=== PATIENT | male | born 1980 | race Caucasian/White ===

== ENCOUNTER 2016-11-01 20:52 | Emergency (ER) | payer OTHER, MEDICAID ==
--- NOTE | 2016-11-01 22:00 | EDM.PDOC ---
ED HPI GENERAL MEDICAL PROBLEM - General Chief Complaint: Lower Extremity Injury/Pain Stated Complaint: PAIN RIGHT LEG [id number] Time Seen by Provider: 11/01/16 21:45 Source of Information: Reports: Patient History Limitations: Reports: No Limitations - History of Present Illness INITIAL COMMENTS - FREE TEXT/NARRATIVE: slipped and right knee went out side ways [employer]. Right Knee Pain Score (Numeric/FACES): 7 - Related Data Allergies Allergy/AdvReac Type Severity Reaction Status Date / Time No Known Allergies Allergy Verified 11/01/16 21:27 Home Meds: Home Meds . [No Known Home Meds] 04/09/16 [History] Past Medical History - Past Health History Medical/Surgical History: Denies Medical/Surgical History Neurological History: Reports: Brain Injury Endocrine/Metabolic History: Reports: Obesity/BMI 30+ Social & Family History - Family History Endocrine/Metabolic: Reports: Diabetes, type II Other Endocrine/Metabolic Family History: dad and grandparents on mom's side. - Tobacco Use Smoking Status *Q: Unknown Ever Smoked Second Hand Smoke Exposure: No - Caffeine Use Caffeine Use: Reports: Soda - Alcohol Use Days Per Week of Alcohol Use: 0 - Recreational Drug Use Recreational Drug Use: No Review of Systems - Review of Systems Review Of Systems: ROS reveals no pertinent complaints other than HPI. ED EXAM, GENERAL - Physical Exam Exam: See Below Exam Limited By: No Limitations General Appearance: Alert, WD/WN, Mild Distress, Other (discomfort) Ears: Hearing Grossly Normal Throat/Mouth: Normal Voice, No Airway Compromise Head: Atraumatic Neck: Non-Tender, Full Range of Motion Respiratory/Chest: No Respiratory Distress Cardiovascular: Regular Rate, Rhythm GI/Abdominal: Soft, Non-Tender Extremities: Limited Range of Motion, Other (right knee swollen, tender R/P, NV wnl, gait limited to pain) Neurological: Alert, Oriented, Normal Cognition, No Motor/Sensory Deficits Psychiatric: Normal Affect, Normal Mood Skin Exam: Warm, Dry Lymphatic: No Adenopathy Course - Vital Signs Last Recorded V/S: Last Vital Signs Temp 37.1 C 11/01/16 21:37 Pulse 92 11/01/16 21:37 Resp 20 11/01/16 21:37 BP 154/90 H 11/01/16 21:37 Pulse Ox 97 11/01/16 21:37 - Orders/Labs/Meds Orders: Active Orders 24 hr Category Date Time Status Knee 3V Rt [CR] Urgent Exams 11/01/16 21:35 Ordered Meds: Medications Discontinued Medications Generic Name Dose Route Start Last Admin Trade Name Debbie PRN Reason Stop Dose Admin Hydrocodone Bitart/Acetaminophen 1 tab 11/01/16 23:07 11/01/16 23:37 [place] 325-10 Mg PO 11/01/16 23:08 1 tab ONETIME ONE Administration Ketorolac Tromethamine 30 mg 11/01/16 22:41 11/01/16 22:49 Toradol IM 11/01/16 22:42 30 mg ONETIME ONE Administration - Re-Assessments/Exams Free Text/Narrative Re-Assessment/Exam: 11/01/16 23:08 results discussed with pt. Departure - Departure Time of Disposition: 21:40 Disposition: Home, Self-Care 01 Condition: Good Clinical Impression: Sprain of knee - Discharge Information Instructions: Knee Sprain, [id number] Forms: ED Department Discharge Additional Instructions: 1) wear immobilizer and use crutches 2) elevate leg as much as possible next few days 3) see clinic Friday for MRI SCAN of knee rx given; vicodin 5/325mg bid prn x 12 - My Orders Last 24 Hours: My Active Orders 11/01/16 21:35 Knee 3V Rt [CR] Urgent - Assessment/Plan Last 24 Hours: My Active Orders 11/01/16 21:35 Knee 3V Rt [CR] Urgent
[2016-11-01] MEDS ORDERED: Ketorolac 30 MG/ML SDV IM ONE (22:41)
[2016-11-01] MEDS ORDERED: Acetaminophen/HYDROcodone 325-10 MG Tab PO ONE (23:07)
[2016-11-02 01:23] VITALS: BP 154/90
== END 2016-11-01 23:40 | disposition home or self-care (01) ==
LOC: DL.ED 20:52
DX: S83.91XA Sprain of unspecified site of right knee, initial encounter (principal); E66.9 Obesity, unspecified; Z87.820 Personal history of traumatic brain injury; Z68.43 Body mass index [BMI] 50.0-59.9, adult; W18.40XA Slipping, tripping and stumbling without falling, unspecified, initial encounter
CPT/HCPCS: 73562; 96372; 99283; A9270; J1885

== ENCOUNTER 2017-04-15 23:44 | Emergency (ER) | payer MEDICAID, OTHER ==
[2017-04-15] MEDS ORDERED: Amoxicillin/Clavulanate K 875-125 MG Tab PO ONE (23:45)
[2017-04-15] MEDS ORDERED: Albuterol 6.7 GM Inhaler INH ONE (23:45)
[2017-04-15 23:53] VITALS: BP 141/81
[2017-04-16] MEDS ORDERED: Albuterol 6.7 GM Inhaler INH ONE (00:24)
[2017-04-16] MEDS ORDERED: Amoxicillin/Clavulanate K 875-125 MG Tab ONE (00:24)
--- NOTE | 2017-04-16 00:27 | EDM.PDOC ---
ED HPI GENERAL MEDICAL PROBLEM - General Chief Complaint: Respiratory Problem Stated Complaint: BAD COUGH [id number] Time Seen by Provider: 04/15/17 23:50 Source of Information: Reports: Patient History Limitations: Reports: No Limitations - History of Present Illness INITIAL COMMENTS - FREE TEXT/NARRATIVE: cough, congestion zx 2 days, today harder time breathing Throat Pain Score (Numeric/FACES): 4 - Related Data Allergies Allergy/AdvReac Type Severity Reaction Status Date / Time No Known Allergies Allergy Verified 04/15/17 23:53 Home Meds: Home Meds . [No Known Home Meds] 04/09/16 [History] Past Medical History - Past Health History Medical/Surgical History: Denies Medical/Surgical History Neurological History: Reports: Brain Injury Endocrine/Metabolic History: Reports: Obesity/BMI 30+ Social & Family History - Family History Endocrine/Metabolic: Reports: Diabetes, type II Other Endocrine/Metabolic Family History: dad and grandparents on mom's side. - Tobacco Use Smoking Status *Q: Never Smoker Second Hand Smoke Exposure: No - Caffeine Use Caffeine Use: Reports: Soda - Alcohol Use Days Per Week of Alcohol Use: 0 - Recreational Drug Use Recreational Drug Use: No ED ROS GENERAL - Review of Systems Review Of Systems: See Below Constitutional: Reports: Fever HEENT: Reports: Rhinitis, Sinus Problem. Denies: Throat Pain Respiratory: Reports: Shortness of Breath, Cough Cardiovascular: Reports: No Symptoms GI/Abdominal: Reports: No Symptoms Musculoskeletal: Reports: No Symptoms Skin: Reports: No Symptoms Neurological: Reports: No Symptoms ED EXAM, GENERAL - Physical Exam Exam: See Below Exam Limited By: No Limitations General Appearance: Alert, Mild Distress, Obese Eye Exam: Bilateral Eye: EOMI, PERRL Ears: Normal External Exam, Normal TMs Nose: Normal Inspection Throat/Mouth: Normal Voice (hoarse), Inflammation Head: Atraumatic, Normocephalic Neck: Lymphadenopathy (L), Lymphadenopathy (R) Respiratory/Chest: No Respiratory Distress, Lungs Clear, Decreased Breath Sounds , Other (ocassional non productive cough) Cardiovascular: Normal Peripheral Pulses, Regular Rate, Rhythm Back Exam: Normal Inspection, Full Range of Motion Extremities: Normal Inspection Neurological: Alert, Oriented Course - Vital Signs Last Recorded V/S: Last Vital Signs Temp 98.4 F 04/15/17 23:49 Pulse 103 H 04/15/17 23:49 Resp 18 04/15/17 23:49 BP 141/81 H 04/15/17 23:49 Pulse Ox 94 L 04/15/17 23:49 - Orders/Labs/Meds Meds: Medications Discontinued Medications Generic Name Dose Route Start Last Admin Trade Name Debbie PRN Reason Stop Dose Admin Albuterol Confirm 04/16/17 00:24 04/16/17 00:34 Proventil Hfa Administered 04/16/17 00:25 Not Given Dose 6.7 gm INH .STK-MED ONE Amoxicillin/Clavulanate Potassium Confirm 04/16/17 00:24 04/16/17 00:34 Augmentin 875 Mg/125 Mg Administered 04/16/17 00:25 Not Given Dose 2 tab .ROUTE .STK-MED ONE Departure - Departure Time of Disposition: 00:24 Disposition: Home, Self-Care 01 Condition: Good Clinical Impression: URI (upper respiratory infection) Qualifiers: URI type: unspecified URI Qualified Code(s): J06.9 - Acute upper respiratory infection, unspecified - Discharge Information Instructions: Acute Bronchitis, [id number], Upper Respiratory Infection, Adult, [id number] Referrals: Nuvia Montanez MD [Primary Care Provider] - Forms: ED Department Discharge Additional Instructions: tylenol or ibuprofen for discomfort/fever increase fluid intake muccinex, humidification albuterol inhaler 2 puffs every 4 hours as needed for cough/ wheezing augmentin 875 one twice daily for one week clinic follow up as needed
== END 2017-04-16 00:31 | disposition home or self-care (01) ==
LOC: DL.ED 23:44
DX: J06.9 Acute upper respiratory infection, unspecified (principal); E66.9 Obesity, unspecified
CPT/HCPCS: 99284; A9270

== ENCOUNTER 2017-08-24 23:14 | Observation (INO) | payer MEDICAID ==
[2017-08-24] MEDS ORDERED: Adenosine 6 MG/2 ML SDV IVPUSH ONE (23:24)
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
[2017-08-24] MEDS ORDERED: Ondansetron 4 MG/2 ML SDV IV ONE (23:33)
[2017-08-24] MEDS ORDERED: Morphine 2 MG/ML Syringe IVPUSH ONE (23:33)
[2017-08-24 23:51] LABS: CHLORIDE,CL 105 mmol/L (101-111); SODIUM,NA 138 mmol/L (135-145)
[2017-08-25] MEDS ORDERED: Ibuprofen 400 MG Tab PO PRN (01:03)
[2017-08-25] MEDS ORDERED: Sodium Chloride 0.9% 10 ML Syringe FLUSH PRN (01:03)
[2017-08-25] MEDS ORDERED: Zolpidem 5 MG Tab PO PRN (01:03)
[2017-08-25] MEDS ORDERED: Acetaminophen 325 MG Tab PO PRN (01:03)
[2017-08-25] MEDS ORDERED: oxyCODONE 5 MG Tab PO PRN (01:03)
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
[2017-08-25] MEDS ORDERED: Heparin Sodium 5,000 Units/ML Vial SUBCUT SCH (06:00)
[2017-08-25 06:59] LABS: CHLORIDE,CL 107 mmol/L (101-111); SODIUM,NA 139 mmol/L (135-145)
[2017-08-25 08:08] VITALS: BP 103/58
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
--- NOTE | 2017-08-26 07:56 | EKG ---
08/25/2017- LATOYA AKHTAR - FINDINGS: EKG per my reading, shows sinus tachycardia at the rate of 114. MODL /[id number]
== END 2017-08-25 10:43 | disposition home or self-care (01) ==
LOC: DL.ED 23:14 → DL.MS 08-25 00:20 → UNDOADMOB 08-25 00:20 → DL.MS 08-25 01:03
PROVIDERS: ADMIT Internal Medicine; ATTEND Internal Medicine
DX: R07.89 Other chest pain (principal); I47.1 Supraventricular tachycardia; R73.9 Hyperglycemia, unspecified; R74.8 Abnormal levels of other serum enzymes; E66.01 Morbid (severe) obesity due to excess calories; Z68.30 Body mass index [BMI] 30.0-30.9, adult
CPT/HCPCS: 36415; 71046; 80048; 80053; 84443; 84484; 85025; 93005; 93010; 96372; 96374; 96375; 99285; G0378; J1644; J2270; J2405; 99284

== ENCOUNTER 2017-09-02 20:02 | Observation (INO) | payer OTHER ==
[2017-09-02] MEDS ORDERED: Clindamycin Phosphate 900 MG in Sodium Chloride 0.9% 100 ML IV ONE (20:22)
[2017-09-02] MEDS ORDERED: Sodium Chloride 0.9% 1,000 ML IV SCH (20:30)
[2017-09-02 20:54] LABS: CHLORIDE,CL 106 mmol/L (101-111); SODIUM,NA 139 mmol/L (135-145)
--- NOTE | 2017-09-02 21:40 | EDM.PDOC ---
ED HPI GENERAL MEDICAL PROBLEM - General Chief Complaint: Lower Extremity Injury/Pain Stated Complaint: [id number] LEG VERY SWOLLEN 3X Time Seen by Provider: 09/02/17 21:37 Source of Information: Reports: Patient History Limitations: Reports: No Limitations - History of Present Illness INITIAL COMMENTS - FREE TEXT/NARRATIVE: 3 days h/o progressively worsening right leg swelling with prior h/o cellulitis , was feverish initially. today more swollen and painful and redder. Right Leg Pain Score (Numeric/FACES): 6 - Related Data Allergies Allergy/AdvReac Type Severity Reaction Status Date / Time No Known Allergies Allergy Verified 09/02/17 20:10 Home Meds: Home Meds . [No Known Home Meds] 04/09/16 [History] Past Medical History - Past Health History Medical/Surgical History: Denies Medical/Surgical History Cardiovascular History: Reports: Other (See Below) Other Cardiovascular History: one episode of rapid heart rate Musculoskeletal History: Reports: Other (See Below) Other Musculoskeletal History: bone spurs bilaterally to ankles Neurological History: Reports: Brain Injury, Headaches, Chronic, Migraines Endocrine/Metabolic History: Reports: Obesity/BMI 30+ Dermatologic History: Reports: Cellulitis - Infectious Disease History Infectious Disease History: Reports: Chicken Pox Social & Family History - Family History Family Medical History: Noncontributory Endocrine/Metabolic: Reports: Diabetes, type II Other Endocrine/Metabolic Family History: dad and grandparents on mom's side. - Tobacco Use Smoking Status *Q: Never Smoker - Caffeine Use Caffeine Use: Reports: Soda Other Caffeine Use: 3 20 oz bottles - Recreational Drug Use Recreational Drug Use: No Review of Systems - Review of Systems Review Of Systems: ROS reveals no pertinent complaints other than HPI. ED EXAM, GENERAL - Physical Exam Exam: See Below Exam Limited By: No Limitations General Appearance: Alert, WD/WN, Mild Distress, Other (discomfort) Ears: Hearing Grossly Normal Throat/Mouth: Normal Voice, No Airway Compromise Head: Atraumatic Neck: Non-Tender, Full Range of Motion Respiratory/Chest: No Respiratory Distress Cardiovascular: Regular Rate, Rhythm GI/Abdominal: Soft, Non-Tender Extremities: Other (right lower leg swollen mildly erythematous, tneder palpation, NV ) Neurological: Alert (gait limited to pain), Oriented, Normal Cognition, No Motor /Sensory Deficits Psychiatric: Flat Affect Skin Exam: Warm, Dry, Normal Color Lymphatic: No Adenopathy Course - Vital Signs Last Recorded V/S: Last Vital Signs Temp 37.7 C 09/02/17 20:12 Pulse 119 H 09/02/17 20:12 Resp 18 09/02/17 20:12 BP 151/80 H 09/02/17 20:12 Pulse Ox 95 09/02/17 20:12 - Orders/Labs/Meds Orders: Active Orders 24 hr Category Date Time Status CULTURE BLOOD [BC] Stat Lab 09/02/17 20:30 Received Sodium Chloride 0.9% [Normal Saline] 1,000 ml Med 09/02/17 20:30 Active IV ASDIRECTED Medication Orders Sodium Chloride (Normal Saline) 1,000 mls @ 150 mls/hr IV ASDIRECTED RETA Last Admin: 09/02/17 21:15 Dose: 150 mls/hr Labs: Laboratory Tests 09/02/17 09/02/17 09/02/17 Range/Units 20:30 20:30 20:30 WBC 9.9 (5.0-10.0) 10^3/uL RBC 4.33 L (4.6-6.2) 10^6/uL Hgb 12.9 L (14.0-18.0) g/dL Hct 39.5 L (40.0-54.0) % MCV 91.2 (80-100) fL MCH 29.8 (27.0-34.0) pg MCHC 32.7 L (33.0-35.0) g/dL Plt Count 308 (150-450) 10^3/uL Neut % (Auto) 67.8 (42.2-75.2) % Lymph % (Auto) 21.5 (20.5-50.1) % Ray % (Auto) 8.3 H (2-8) % Eos % (Auto) 2.0 (1.0-3.0) % Baso % (Auto) 0.4 (0.0-1.0) % Sodium 139 (135-145) mmol/L Potassium 3.5 L (3.6-5.0) mmol/L Chloride 106 (101-111) mmol/L Carbon Dioxide 28.0 (21.0-31.0) mmol/L Anion Gap 8.5 BUN 14 (7-18) mg/dL Creatinine 0.9 (0.6-1.3) mg/dL Est Cr Clr Drug Dosing 133.19 mL/min Estimated GFR (MDRD) > 60 BUN/Creatinine Ratio 15.55 Glucose 149 H (74-105) mg/dL Lactic Acid 1.6 (0.5-2.2) mmol/L Calcium 8.6 (8.4-10.2) mg/dl Total Bilirubin 0.5 (0.2-1.0) mg/dL AST 36 (10-42) IU/L ALT 38 (10-60) IU/L Alkaline Phosphatase 80 (42-121) IU/L Total Protein 7.8 (6.7-8.2) g/dl Albumin 3.5 (3.2-5.5) g/dl Globulin 4.3 Albumin/Globulin Ratio 0.81 Meds: Medications Generic Name Dose Route Start Last Admin Trade Name Freq PRN Reason Stop Dose Admin Sodium Chloride 1,000 mls @ 150 mls/hr 09/02/17 20:30 09/02/17 21:15 Normal Saline IV 150 mls/hr ASDIRECTED RETA Administration Discontinued Medications Generic Name Dose Route Start Last Admin Trade Name Freq PRN Reason Stop Dose Admin Clindamycin Phosphate 900 mg/ 106 mls @ 200 mls/hr 09/02/17 20:22 09/02/17 21 :15 Sodium Chloride IV 09/02/17 20:53 200 mls/hr ONETIME ONE Administration - Re-Assessments/Exams Free Text/Narrative Re-Assessment/Exam: 09/02/17 21:[address] Padgett who kindly admitted pt to observation Departure - Departure Time of Disposition: 21:45 Disposition: Refer to Observation Condition: Good Clinical Impression: Cellulitis of leg Qualifiers: Laterality: right Qualified Code(s): L03.115 - Cellulitis of right lower limb - Discharge Information Referrals: Nuvia Montanez MD [Primary Care Provider] - Forms: ED Department Discharge - My Orders Last 24 Hours: My Active Orders 09/02/17 20:30 CULTURE BLOOD [BC] Stat Sodium Chloride 0.9% [Normal Saline] 1,000 ml IV ASDIRECTED - Assessment/Plan Last 24 Hours: My Active Orders 09/02/17 20:30 CULTURE BLOOD [BC] Stat Sodium Chloride 0.9% [Normal Saline] 1,000 ml IV ASDIRECTED
[2017-09-02] MEDS ORDERED: Acetaminophen 325 MG Tab PO PRN (23:44)
--- NOTE | 2017-09-02 23:52 | PCM.HP ---
H&P History of Present Illness - General Date of Service: 09/02/17 Admit Problem/Dx: Admission Diagnosis/Problem Admission Diagnosis/Problem Cellulitis Source of Information: Patient History Limitations: Reports: No Limitations - History of Present Illness Initial Comments - Free Text/Narative: 37-year-old male with past medical history of obesity presents with right lower extremity redness and swelling Symptoms started about 2 days ago, he noticed lower extremity redness and swelling of the right leg. There is no history of insect bites, there is no history of pus or drainage. He had a low-grade fever. He had a similar cellulitis about 3 years ago. SH: Nonsmoker, doesn't drink alcohol. PMH: Doesn't take any daily medication Onset of Symptoms: Reports: Gradual Right Leg Pain Score (Numeric/FACES): 6 - Related Data Allergies/Adverse Reactions: Allergies Allergy/AdvReac Type Severity Reaction Status Date / Time No Known Allergies Allergy Verified 09/02/17 22:33 Home Medications: Home Meds . [No Known Home Meds] 04/09/16 [History] Past Medical History - Past Health History Medical/Surgical History: Denies Medical/Surgical History HEENT History: Reports: Other (See Below) Other HEENT History: migraines Cardiovascular History: Reports: Other (See Below) Other Cardiovascular History: one episode of rapid heart rate Musculoskeletal History: Reports: Other (See Below) Other Musculoskeletal History: bone spurs bilaterally to ankles Neurological History: Reports: Brain Injury, Headaches, Chronic, Migraines Endocrine/Metabolic History: Reports: Obesity/BMI 30+ Dermatologic History: Reports: Cellulitis - Infectious Disease History Infectious Disease History: Reports: Chicken Pox - Past Surgical History HEENT Surgical History: Reports: None Social & Family History - Family History Family Medical History: Noncontributory Endocrine/Metabolic: Reports: Diabetes, type II Other Endocrine/Metabolic Family History: dad and grandparents on mom's side. - Tobacco Use Smoking Status *Q: Never Smoker Second Hand Smoke Exposure: No - Caffeine Use Caffeine Use: Reports: None Other Caffeine Use: 3 20 oz bottles - Recreational Drug Use Recreational Drug Use: No H&P Review of Systems - Review of Systems: Review Of Systems: See Below General: Reports: Fever HEENT: Reports: No Symptoms Pulmonary: Reports: No Symptoms Cardiovascular: Reports: No Symptoms Gastrointestinal: Reports: No Symptoms Genitourinary: Reports: No Symptoms Musculoskeletal: Reports: Other (Leg redness and swelling) Skin: Reports: Change in Color Psychiatric: Reports: No Symptoms Neurological: Reports: No Symptoms Exam - Exam Exam: See Below - Vital Signs Vital Signs: Last Vital Signs Temp 37.9 C 09/02/17 21:54 Pulse 107 H 09/02/17 21:54 Resp 20 09/02/17 21:54 BP 121/70 09/02/17 21:54 Pulse Ox 95 09/02/17 21:54 Weight: 2.778 kg - Exam General: Alert, Oriented HEENT: Conjunctiva Clear Neck: Supple Lungs: Clear to Auscultation Cardiovascular: Regular Rate, Regular Rhythm GI/Abdominal Exam: Normal Bowel Sounds Extremities: Non-Tender, Increased Warmth, Redness, Other - Patient Data Lab Results Last 24 hrs: Laboratory Results - last 24 hr 09/02/17 09/02/17 09/02/17 Range/Units 20:30 20:30 20:30 WBC 9.9 (5.0-10.0) 10^3/uL RBC 4.33 L (4.6-6.2) 10^6/uL Hgb 12.9 L (14.0-18.0) g/dL Hct 39.5 L (40.0-54.0) % MCV 91.2 (80-100) fL MCH 29.8 (27.0-34.0) pg MCHC 32.7 L (33.0-35.0) g/dL Plt Count 308 (150-450) 10^3/uL Neut % (Auto) 67.8 (42.2-75.2) % Lymph % (Auto) 21.5 (20.5-50.1) % Lares % (Auto) 8.3 H (2-8) % Eos % (Auto) 2.0 (1.0-3.0) % Baso % (Auto) 0.4 (0.0-1.0) % Sodium 139 (135-145) mmol/L Potassium 3.5 L (3.6-5.0) mmol/L Chloride 106 (101-111) mmol/L Carbon Dioxide 28.0 (21.0-31.0) mmol/L Anion Gap 8.5 BUN 14 (7-18) mg/dL Creatinine 0.9 (0.6-1.3) mg/dL Est Cr Clr Drug Dosing 133.19 mL/min Estimated GFR (MDRD) > 60 BUN/Creatinine Ratio 15.55 Glucose 149 H (74-105) mg/dL Lactic Acid 1.6 (0.5-2.2) mmol/L Calcium 8.6 (8.4-10.2) mg/dl Total Bilirubin 0.5 (0.2-1.0) mg/dL AST 36 (10-42) IU/L ALT 38 (10-60) IU/L Alkaline Phosphatase 80 (42-121) IU/L Total Protein 7.8 (6.7-8.2) g/dl Albumin 3.5 (3.2-5.5) g/dl Globulin 4.3 Albumin/Globulin Ratio 0.81 Result Diagrams: 09/02/17 20:30 09/02/17 20:30 Problem List Initiated/Reviewed/Updated: Yes Orders Last 24hrs: Active Orders 24 hr Category Date Time Status Patient Status [ADT] Routine ADT 09/02/17 23:44 Ordered Ambulate [RC] ASDIRECTED Care 09/02/17 23:44 Ordered Oxygen Therapy [RC] PRN Care 09/02/17 23:44 Ordered Peripheral IV Care [RC] . DIRECTED Care 09/02/17 23:45 Ordered Up ad Cecille [RC] ASDIRECTED Care 09/02/17 23:44 Ordered VTE/DVT Education [RC] PER UNIT ROUTINE Care 09/02/17 23:44 Ordered Vital Signs [RC] Q4H Care 09/02/17 23:44 Ordered Regular Diet [DIET] Diet 09/03/17 Breakfast Ordered CULTURE BLOOD [BC] Stat Lab 09/02/17 20:30 Received Acetaminophen [Tylenol] Med 09/02/17 23:44 Ordered 650 mg PO Q4H PRN Heparin Sodium Med 09/03/17 06:00 Ordered 5,000 units SUBCUT Q8HR Sodium Chloride 0.9% [Normal Saline] 1,000 ml Med 09/02/17 20:30 Active IV ASDIRECTED Sodium Chloride 0.9% [Saline Flush] Med 09/02/17 23:44 Ordered 10 ml FLUSH ASDIRECTED PRN ceFAZolin [Ancef] 2 gm Med 09/03/17 06:00 Ordered Premix Bag 1 bag IV Q8HR Peripheral IV Insertion Adult [OM.PC] Routine Oth 09/02/17 23:44 Ordered Saline Lock Insert [OM.PC] Routine Oth 09/02/17 23:44 Ordered Resuscitation Status Routine Resus Stat 09/02/17 23:44 Ordered Medication Orders Sodium Chloride (Normal Saline) 1,000 mls @ 150 mls/hr IV ASDIRECTED RETA Last Admin: 09/02/17 21:15 Dose: 150 mls/hr Assessment/Plan Comment:: 37-year-old who presents with right lower extremity cellulitis #Right lower extremity cellulitis IV Ancef When necessary Tylenol for fever #Hyperkalemia Mild, replenish orally #DVT prophylaxis Subcutaneous heparin.
[2017-09-03] MEDS: ceFAZolin 2 GM in Premix Bag 1 BAG IV SCH ×3 (05:42→21:50)
[2017-09-03] MEDS: Heparin Sodium 5,000 Units/ML Vial SUBCUT SCH ×3 (05:44→21:55)
--- NOTE | 2017-09-03 10:39 | PCM.PN ---
- General Info Date of Service: 09/03/17 Admission Dx/Problem (Free Text): Admission Diagnosis/Problem Admission Diagnosis/Problem Cellulitis Subjective Update: 37-year-old male with past medical history of obesity presents with right lower extremity redness and swelling I saw and examined the patient today. Swelling and redness have reduced overnight with IV antibiotics. He has no new complaints - Review of Systems General: Reports: No Symptoms HEENT: Reports: No Symptoms Pulmonary: Reports: No Symptoms Cardiovascular: Reports: No Symptoms Gastrointestinal: Reports: No Symptoms, Flatus Genitourinary: Reports: No Symptoms Musculoskeletal: Reports: No Symptoms - Patient Data Vitals - Most Recent: Last Vital Signs Temp 36.8 C 09/03/17 10:18 Pulse 84 09/03/17 10:18 Resp 16 09/03/17 10:18 BP 142/76 H 09/03/17 10:18 Pulse Ox 96 09/03/17 10:18 Weight - Most Recent: 207.944 kg I&O - Last 24 Hours: Intake & Output 09/02/17 09/03/17 09/03/17 22:59 06:59 14:59 Intake Total 750 Output Total 140 Balance 610 Lab Results Last 24 Hours: Laboratory Results - last 24 hr 09/02/17 09/02/17 09/02/17 Range/Units 20:30 20:30 20:30 WBC 9.9 (5.0-10.0) 10^3/uL RBC 4.33 L (4.6-6.2) 10^6/uL Hgb 12.9 L (14.0-18.0) g/dL Hct 39.5 L (40.0-54.0) % MCV 91.2 (80-100) fL MCH 29.8 (27.0-34.0) pg MCHC 32.7 L (33.0-35.0) g/dL Plt Count 308 (150-450) 10^3/uL Neut % (Auto) 67.8 (42.2-75.2) % Lymph % (Auto) 21.5 (20.5-50.1) % Rogers % (Auto) 8.3 H (2-8) % Eos % (Auto) 2.0 (1.0-3.0) % Baso % (Auto) 0.4 (0.0-1.0) % Sodium 139 (135-145) mmol/L Potassium 3.5 L (3.6-5.0) mmol/L Chloride 106 (101-111) mmol/L Carbon Dioxide 28.0 (21.0-31.0) mmol/L Anion Gap 8.5 BUN 14 (7-18) mg/dL Creatinine 0.9 (0.6-1.3) mg/dL Est Cr Clr Drug Dosing 133.19 mL/min Estimated GFR (MDRD) > 60 BUN/Creatinine Ratio 15.55 Glucose 149 H (74-105) mg/dL Lactic Acid 1.6 (0.5-2.2) mmol/L Calcium 8.6 (8.4-10.2) mg/dl Total Bilirubin 0.5 (0.2-1.0) mg/dL AST 36 (10-42) IU/L ALT 38 (10-60) IU/L Alkaline Phosphatase 80 (42-121) IU/L Total Protein 7.8 (6.7-8.2) g/dl Albumin 3.5 (3.2-5.5) g/dl Globulin 4.3 Albumin/Globulin Ratio 0.81 Med Orders - Current: Current Medications Acetaminophen (Tylenol) 650 mg PO Q4H PRN PRN Reason: Pain (Mild 1-3)/fever Heparin Sodium (Porcine) (Heparin Sodium) 5,000 units SUBCUT Q8HR [facility] Last Admin: 09/03/17 05:44 Dose: 5,000 units Sodium Chloride (Normal Saline) 1,000 mls @ 150 mls/hr IV ASDIRECTED [facility] Last Admin: 09/02/17 21:15 Dose: 150 mls/hr Cefazolin Sodium/Dextrose 2 gm (/ Premix) 50 mls @ 100 mls/hr IV Q8HR [facility] Last Admin: 09/03/17 05:42 Dose: 100 mls/hr Sodium Chloride (Saline Flush) 10 ml FLUSH ASDIRECTED PRN PRN Reason: Keep Vein Open Discontinued Medications Clindamycin Phosphate 900 mg/ (Sodium Chloride) 106 mls @ 200 mls/hr IV ONETIME ONE Stop: 09/02/17 20:53 Last Admin: 09/02/17 21:15 Dose: 200 mls/hr - Exam General: Alert HEENT: Pupils Equal Neck: Supple Lungs: Clear to Auscultation Cardiovascular: Regular Rate GI/Abdominal Exam: Normal Bowel Sounds Extremities: Redness - Problem List Review Problem List Initiated/Reviewed/Updated: Yes - My Orders Last 24 Hours: My Active Orders 09/02/17 23:44 Patient Status [ADT] Routine Ambulate [RC] ASDIRECTED Oxygen Therapy [RC] PRN Up ad Cecille [RC] ASDIRECTED VTE/DVT Education [RC] PER UNIT ROUTINE Vital Signs [RC] Q4H Acetaminophen [Tylenol] 650 mg PO Q4H PRN Sodium Chloride 0.9% [Saline Flush] 10 ml FLUSH ASDIRECTED PRN Peripheral IV Insertion Adult [OM.PC] Routine Saline Lock Insert [OM.PC] Routine Resuscitation Status Routine 09/02/17 23:45 Peripheral IV Care [RC] . DIRECTED 09/03/17 06:00 Heparin Sodium 5,000 units SUBCUT Q8HR ceFAZolin [Ancef] 2 gm Premix Bag 1 bag IV Q8HR 09/03/17 Breakfast Regular Diet [DIET] - Plan Plan:: 37-year-old who presents with right lower extremity cellulitis #Right lower extremity cellulitis IV Ancef When necessary Tylenol for fever #DVT prophylaxis Subcutaneous heparin.
[2017-09-03] MEDS: Sodium Chloride 0.9% 10 ML Syringe FLUSH PRN ×3 (14:06→22:25)
[2017-09-04] MEDS: Sodium Chloride 0.9% 10 ML Syringe FLUSH PRN ×2 (05:22→06:32)
[2017-09-04] MEDS: Heparin Sodium 5,000 Units/ML Vial SUBCUT SCH (05:32)
[2017-09-04 07:56] VITALS: BP 106/55
--- NOTE | 2017-09-04 09:54 | PCM.DCSUM1 ---
Discharge Summary - Hospital Course Free Text/Narrative:: 37-year-old male with past medical history of obesity presents with right lower extremity redness and swelling. He was managed with IV Ancef, and received 2 days of IV antibiotics. He was discharged on oral Keflex to complete 10 more days. He will follow-up with his primary care provider. - Discharge Data Discharge Date: 09/04/17 Discharge Disposition: Home, Self-Care 01 Condition: Good - Patient Instructions Diet: Regular Diet as Tolerated Activity: As Tolerated Showering/Bathing: May Shower - Discharge Plan Prescriptions/Med Rec: Cephalexin [Keflex] 500 mg PO QID 10 Days #40 capsule Home Medications: Home Meds Cephalexin [Keflex] 500 mg PO QID 10 Days #40 capsule 09/04/17 [Rx] Patient Handouts: Cellulitis, Adult, Cellulitis, Adult, [id number] Forms: ED Department Discharge Referrals: Nuvia Montanez MD [Primary Care Provider] - - General Info Admission Dx/Problem (Free Text: Admission Diagnosis/Problem Admission Diagnosis/Problem Cellulitis Subjective Update: 37-year-old male with past medical history of obesity presents with right lower extremity redness and swelling I saw and examined the patient today. Swelling and redness have reduced overnight with IV antibiotics. He has no new complaints - Review of Systems General: Reports: No Symptoms HEENT: Reports: No Symptoms Pulmonary: Reports: No Symptoms Cardiovascular: Reports: No Symptoms Gastrointestinal: Reports: No Symptoms Genitourinary: Reports: No Symptoms Musculoskeletal: Reports: Other (Right lower extremity redness, swelling) - Patient Data Vitals - Most Recent: Last Vital Signs Temp 37.1 C 09/04/17 07:55 Pulse 74 09/04/17 07:55 Resp 20 09/04/17 07:55 BP 106/55 L 09/04/17 07:55 Pulse Ox 94 L 09/04/17 07:55 Weight - Most Recent: 207.944 kg I&O - Last 24 hours: Intake & Output 09/03/17 09/04/17 09/04/17 22:59 06:59 14:59 Intake Total 292 795 Output Total 4 Balance 292 791 CYNDIE Results - Last 24 hrs: Microbiology 09/02/17 20:30 Aerobic Blood Culture - Preliminary Blood NO GROWTH AFTER 1 DAY Anaerobic Blood Culture - Preliminary NO GROWTH AFTER 1 DAY Med Orders - Current: Current Medications Acetaminophen (Tylenol) 650 mg PO Q4H PRN PRN Reason: Pain (Mild 1-3)/fever Heparin Sodium (Porcine) (Heparin Sodium) 5,000 units SUBCUT Q8HR [facility] Last Admin: 09/04/17 05:32 Dose: 5,000 units Sodium Chloride (Normal Saline) 1,000 mls @ 150 mls/hr IV ASDIRECTED [facility] Last Admin: 09/02/17 21:15 Dose: 150 mls/hr Cefazolin Sodium/Dextrose (Ancef) 100 mls @ 100 mls/hr IV Q8H [facility] Last Admin: 09/04/17 05:24 Dose: 100 mls/hr Sodium Chloride (Saline Flush) 10 ml FLUSH ASDIRECTED PRN PRN Reason: Keep Vein Open Last Admin: 09/04/17 06:32 Dose: 10 ml Discontinued Medications Clindamycin Phosphate 900 mg/ (Sodium Chloride) 106 mls @ 200 mls/hr IV ONETIME ONE Stop: 09/02/17 20:53 Last Admin: 09/02/17 21:15 Dose: 200 mls/hr Cefazolin Sodium/Dextrose 2 gm (/ Premix) 50 mls @ 100 mls/hr IV Q8HR [facility] Last Infusion: 09/03/17 22:27 Dose: Infused - Exam General: Reports: Alert, Oriented HEENT: Reports: Pupils Equal Neck: Reports: Supple Lungs: Reports: Clear to Auscultation Cardiovascular: Reports: Regular Rate, Regular Rhythm GI/Abdominal Exam: Normal Bowel Sounds Extremities: Pedal Edema, Redness
== END 2017-09-04 11:00 | disposition home or self-care (01) ==
LOC: DL.ED 20:02 → UNDOADMOB 22:09 → INTOOBSV 22:09 → DL.MS 22:09
PROVIDERS: ADMIT Hospitalist; ATTEND Hospitalist
DX: L03.115 Cellulitis of right lower limb (principal); E87.5 Hyperkalemia; E66.9 Obesity, unspecified; G43.909 Migraine, unspecified, not intractable, without status migrainosus; Z68.30 Body mass index [BMI] 30.0-30.9, adult
CPT/HCPCS: 36415; 73590; 80053; 83605; 85025; 87040; 96365; 96366; 96367; 96372; 96375; 99284; G0378; J0690; J1644; J7030; J7050; S0077

== ENCOUNTER 2017-11-12 17:02 | Emergency (ER) | payer OTHER ==
[2017-11-12] MEDS ORDERED: Lidocaine 5% Oint 35.44 GM Tube TOP ONE (17:12)
--- NOTE | 2017-11-12 17:12 | EDM.PDOC ---
ED HPI GENERAL MEDICAL PROBLEM - General Chief Complaint: Burn Stated Complaint: LEFT HAND, BURNDT AT WORK Time Seen by Provider: 11/12/17 17:12 Source of Information: Reports: Patient, RN, RN Notes Reviewed History Limitations: Reports: No Limitations - History of Present Illness INITIAL COMMENTS - FREE TEXT/NARRATIVE: Pt c/o burn to palm of left hand. He was working at [employer] and accidentally caught a hot wood from falling to the floor. He denies any other injury. Pt states his tetanus vaccine was last updated about 2 years ago. Onset: Today Duration: Constant Location: Reports: Upper Extremity, Left Quality: Reports: Burning Severity: Moderate Improves with: Reports: None Worsens with: Reports: None Associated Symptoms: Reports: No Other Symptoms Treatments PROFESSOR OF THEOLOGY: Reports: NSAIDS Left Hand Pain Score (Numeric/FACES): 8 - Related Data Allergies Allergy/AdvReac Type Severity Reaction Status Date / Time No Known Allergies Allergy Verified 11/12/17 17:19 Home Meds: Home Meds Ibuprofen [Ibu] 800 mg PO ASDIRECTED PRN 11/12/17 [History] Past Medical History - Past Health History Medical/Surgical History: Denies Medical/Surgical History HEENT History: Reports: Other (See Below) Other HEENT History: migraines Cardiovascular History: Reports: Other (See Below) Other Cardiovascular History: one episode of rapid heart rate Musculoskeletal History: Reports: Other (See Below) Other Musculoskeletal History: bone spurs bilaterally to ankles Neurological History: Reports: Brain Injury, Headaches, Chronic, Migraines Endocrine/Metabolic History: Reports: Obesity/BMI 30+ Dermatologic History: Reports: Cellulitis - Infectious Disease History Infectious Disease History: Reports: Chicken Pox - Past Surgical History HEENT Surgical History: Reports: None Social & Family History - Family History Family Medical History: Noncontributory Endocrine/Metabolic: Reports: Diabetes, type II Other Endocrine/Metabolic Family History: dad and grandparents on mom's side. - Caffeine Use Caffeine Use: Reports: None Other Caffeine Use: 3 20 oz bottles - Living Situation & Occupation Living situation: Reports: , with Family Occupation: Employed ED ROS GENERAL - Review of Systems Review Of Systems: ROS reveals no pertinent complaints other than HPI. ED EXAM, BURN/SMOKE INHALATION - Physical Exam Exam: See Below Exam Limited By: No Limitations General Appearance: Alert, No Apparent Distress, Obese Mouth/Throat: No Symptoms Reported Head: No Symptoms, Atraumatic, Normocephalic Neck: No Symptoms Respiratory: No Respiratory Distress Peripheral Pulses: 3+: Radial (L), Radial (R) GI/Abdominal: Non-Tender Extremities: Normal Range of Motion, Normal Capillary Refill Neurological: Alert, Oriented, Normal Cognition, Normal Gait, No Motor/Sensory Deficits Psychiatric: Normal Affect, Normal Mood Skin Exam: Warm, Dry, Intact, Other (superficial burn to left palmar hand and digits 1-5 with minor small blistering patches, skin is intact) Course - Vital Signs Last Recorded V/S: Last Vital Signs Temp 35.8 C 11/12/17 17:08 Pulse 96 11/12/17 17:08 Resp 16 11/12/17 17:08 BP 127/105 H 11/12/17 17:08 Pulse Ox 98 11/12/17 17:08 - Orders/Labs/Meds Meds: Medications Discontinued Medications Generic Name Dose Route Start Last Admin Trade Name Nicq PRN Reason Stop Dose Admin Lidocaine HCl 15 gm 11/12/17 17:12 Lidocaine 5% TOP 11/12/17 17:13 ONETIME ONE Silver Sulfadiazine 50 gm 11/12/17 17:13 Silvadene 1% Cream 50 Gm TOP 11/12/17 17:14 ONETIME ONE Departure - Departure Time of Disposition: 17:28 Disposition: Home, Self-Care 01 Condition: Good Clinical Impression: Superficial partial thickness burn of hand, Work related injury - Discharge Information Instructions: Burn Care, Adult, [id number] Forms: ED Department Discharge Additional Instructions: Silvadene Cream 1% to left hand twice a day for 5 days. Follow up in clinic if any signs of infection develop.
[2017-11-12] MEDS ORDERED: Silver Sulfadiazine 1% Crm 50 GM Tube TOP ONE (17:13)
[2017-11-12 17:19] VITALS: BP 127/105
== END 2017-11-12 17:41 | disposition home or self-care (01) ==
LOC: DL.ED 17:02
DX: T23.242A Burn of second degree of multiple left fingers (nail), including thumb, initial encounter (principal); T23.252A Burn of second degree of left palm, initial encounter; X15.8XXA Contact with other hot household appliances, initial encounter; Y99.0 Civilian activity done for income or pay
CPT/HCPCS: 16020; 99283; A9270

== ENCOUNTER 2018-04-07 16:13 | Inpatient (IN) | payer MEDICAID, OTHER ==
[2018-04-07] MEDS ORDERED: ceFAZolin 2 GM in Sodium Chloride 0.9% 50 ML IV ONE (18:02)
[2018-04-07] MEDS: Sodium Chloride 0.9% 10 ML Syringe FLUSH PRN (18:30)
[2018-04-07 18:33] LABS: ANION GAP 14.6; CHLORIDE,CL 98 mmol/L (101-111); SODIUM,NA 134 mmol/L (135-145)
--- NOTE | 2018-04-07 18:47 | EDM.PDOC ---
Scribed by Katharine Stanley 04/07/18 [id number] for Fred Sanchez MD ED HPI GENERAL MEDICAL PROBLEM - General Chief Complaint: Skin Complaint Stated Complaint: cellulitis, fever [id number] Time Seen by Provider: 04/07/18 17:28 Source of Information: Reports: Patient, RN, RN Notes Reviewed History Limitations: Reports: No Limitations - History of Present Illness INITIAL COMMENTS - FREE TEXT/NARRATIVE: Patient presents to ER with complaint of right lower extremity pain, redness and states the skin feels hot. Onset was this morning associated with fever and chills. Patient states that he drove to [employer] yesterday and worked a double shift at [employer] on his feet for 16 hours. He is not sure if he bumped his leg or not. He states that the symptoms are very similar to the symptoms he had 6 months ago when he had cellulitis. Onset: Today Duration: Constant Location: Reports: Lower Extremity, Right Quality: Reports: Ache Severity: Moderate Improves with: Reports: None Worsens with: Reports: None Associated Symptoms: Reports: No Other Symptoms - Related Data Allergies Allergy/AdvReac Type Severity Reaction Status Date / Time No Known Allergies Allergy Verified 04/07/18 17:38 Home Meds: Home Meds Ibuprofen [Ibu] 800 mg PO ASDIRECTED PRN 11/12/17 [History] Past Medical History - Past Health History Medical/Surgical History: Denies Medical/Surgical History HEENT History: Reports: Other (See Below) Other HEENT History: migraines Cardiovascular History: Reports: Other (See Below) Other Cardiovascular History: one episode of rapid heart rate Musculoskeletal History: Reports: Other (See Below) Other Musculoskeletal History: bone spurs bilaterally to ankles Neurological History: Reports: Brain Injury, Headaches, Chronic, Migraines Endocrine/Metabolic History: Reports: Obesity/BMI 30+ Dermatologic History: Reports: Cellulitis - Infectious Disease History Infectious Disease History: Reports: Chicken Pox - Past Surgical History HEENT Surgical History: Reports: None Social & Family History - Family History Family Medical History: Noncontributory Endocrine/Metabolic: Reports: Diabetes, type II Other Endocrine/Metabolic Family History: dad and grandparents on mom's side. - Caffeine Use Caffeine Use: Reports: None Other Caffeine Use: 3 20 oz bottles - Living Situation & Occupation Living situation: Reports: , with Family Occupation: Employed ED ROS GENERAL - Review of Systems Review Of Systems: ROS reveals no pertinent complaints other than HPI. ED EXAM, SKIN/RASH Exam: See Below Exam Limited By: No Limitations General Appearance: Alert, No Apparent Distress, Obese Eye Exam: Bilateral Eye: Normal Inspection Nose: Normal Inspection Throat/Mouth: Normal Inspection, Normal Lips, Normal Voice, No Airway Compromise Head: Atraumatic, Normocephalic Neck: Normal Inspection, Supple, Non-Tender, Full Range of Motion Respiratory/Chest: No Respiratory Distress, Lungs Clear, Normal Breath Sounds, No Accessory Muscle Use, Chest Non-Tender, Decreased Breath Sounds Cardiovascular: Regular Rate, Rhythm, Tachycardia GI/Abdominal: Normal Bowel Sounds, Soft, Non-Tender, Other (benign obese abdomen ) (Male) Exam: Deferred Rectal (Males) Exam: Deferred Extremities: Normal Range of Motion, Normal Capillary Refill, Pedal Edema, Increased Warmth (Rt lower leg from ankle to proximal lower leg, with erythema and tenderness). No: Joint Swelling, Dannie's Sign Neurological: Alert, Oriented, Normal Cognition, No Motor/Sensory Deficits Psychiatric: Normal Mood Course - Vital Signs Last Recorded V/S: Last Vital Signs Temp 38.1 C 04/07/18 17:29 Pulse 109 H 04/07/18 17:29 Resp 20 04/07/18 17:29 BP 126/83 04/07/18 17:29 Pulse Ox 99 04/07/18 17:29 - Orders/Labs/Meds Orders: Active Orders 24 hr Category Date Time Status Peripheral IV Care [RC] . DIRECTED Care 04/07/18 17:55 Active CULTURE BLOOD [BC] Stat Lab 04/07/18 18:04 Received CULTURE BLOOD [BC] Stat Lab 04/07/18 18:06 Results Sodium Chloride 0.9% [Saline Flush] Med 04/07/18 17:55 Active 10 ml FLUSH ASDIRECTED PRN Blood Culture x2 Reflex Set [OM.PC] Stat Oth 04/07/18 17:55 Ordered Peripheral IV Insertion Adult [OM.PC] Stat Oth 04/07/18 17:55 Ordered Medication Orders Sodium Chloride (Saline Flush) 10 ml FLUSH ASDIRECTED PRN PRN Reason: Keep Vein Open Last Admin: 04/07/18 18:30 Dose: 10 ml Labs: Laboratory Tests 04/07/18 04/07/1804/07/19 Range/Units 18:04 18:04 18:04 WBC 11.6 H (5.0-10.0) 10^3/uL RBC 4.26 L (4.6-6.2) 10^6/uL Hgb 12.7 L (14.0-18.0) g/dL Hct 39.6 L (40.0-54.0) % MCV 93.0 (80-100) fL MCH 29.8 (27.0-34.0) pg MCHC 32.1 L (33.0-35.0) g/dL Plt Count 254 (150-450) 10^3/uL Neut % (Auto) 79.5 H (42.2-75.2) % Lymph % (Auto) 10.7 L (20.5-50.1) % [place] % (Auto) 8.4 H (2-8) % Eos % (Auto) 1.1 (1.0-3.0) % Baso % (Auto) 0.3 (0.0-1.0) % Sodium 134 L (135-145) mmol/L Potassium 3.6 (3.6-5.0) mmol/L Chloride 98 L (101-111) mmol/L Carbon Dioxide 25.0 (21.0-31.0) mmol/L Anion Gap 14.6 BUN 14 (7-18) mg/dL Creatinine 0.7 (0.6-1.3) mg/dL Est Cr Clr Drug Dosing 169.62 mL/min Estimated GFR (MDRD) > 60 BUN/Creatinine Ratio 20.00 Glucose 110 H (74-105) mg/dL Lactic Acid 0.9 (0.5-2.2) mmol/L Calcium 8.6 (8.4-10.2) mg/dl Total Bilirubin 0.9 (0.2-1.0) mg/dL AST 42 (10-42) IU/L ALT 37 (10-60) IU/L Alkaline Phosphatase 88 (42-121) IU/L C-Reactive Protein (0.0-1.3) mg/dL Total Protein 7.5 (6.7-8.2) g/dl Albumin 3.5 (3.2-5.5) g/dl Globulin 4.0 Albumin/Globulin Ratio 0.88 04/07/18 Range/Units 18:04 WBC (5.0-10.0) 10^3/uL RBC (4.6-6.2) 10^6/uL Hgb (14.0-18.0) g/dL Hct (40.0-54.0) % MCV (80-100) fL MCH (27.0-34.0) pg MCHC (33.0-35.0) g/dL Plt Count (150-450) 10^3/uL Neut % (Auto) (42.2-75.2) % Lymph % (Auto) (20.5-50.1) % [place] % (Auto) (2-8) % Eos % (Auto) (1.0-3.0) % Baso % (Auto) (0.0-1.0) % Sodium (135-145) mmol/L Potassium (3.6-5.0) mmol/L Chloride (101-111) mmol/L Carbon Dioxide (21.0-31.0) mmol/L Anion Gap BUN (7-18) mg/dL Creatinine (0.6-1.3) mg/dL Est Cr Clr Drug Dosing mL/min Estimated GFR (MDRD) BUN/Creatinine Ratio Glucose (74-105) mg/dL Lactic Acid (0.5-2.2) mmol/L Calcium (8.4-10.2) mg/dl Total Bilirubin (0.2-1.0) mg/dL AST (10-42) IU/L ALT (10-60) IU/L Alkaline Phosphatase (42-121) IU/L C-Reactive Protein 1.5 H (0.0-1.3) mg/dL Total Protein (6.7-8.2) g/dl Albumin (3.2-5.5) g/dl Globulin Albumin/Globulin Ratio Meds: Medications Generic Name Dose Route Start Last Admin Trade Name Freq PRN Reason Stop Dose Admin Sodium Chloride 10 ml 04/07/18 17:55 04/07/18 18:30 Saline Flush FLUSH 10 ml ASDIRECTED PRN Administration Keep Vein Open Discontinued Medications Generic Name Dose Route Start Last Admin Trade Name Freq PRN Reason Stop Dose Admin Cefazolin Sodium 2 gm/ Sodium 50 mls @ 100 mls/hr 04/07/18 18:02 04/07/18 18: 37 Chloride IV 04/07/18 18:31 100 mls/hr ONETIME ONE Administration Departure - Departure Time of Disposition: 18:46 (admitted to Dr. Campbell) Disposition: Admitted As Inpatient 68 Condition: Fair Clinical Impression: Cellulitis of right lower extremity - Discharge Information *PRESCRIPTION DRUG MONITORING PROGRAM REVIEWED*: Not Applicable *COPY OF PRESCRIPTION DRUG MONITORING REPORT IN PATIENT ERICA: Not Applicable Referrals: PCP,None [Primary Care Provider] - Forms: ED Department Discharge - My Orders Last 24 Hours: My Active Orders 04/07/18 17:55 Peripheral IV Care [RC] . DIRECTED Sodium Chloride 0.9% [Saline Flush] 10 ml FLUSH ASDIRECTED PRN Blood Culture x2 Reflex Set [OM.PC] Stat Peripheral IV Insertion Adult [OM.PC] Stat 04/07/18 18:04 CULTURE BLOOD [BC] Stat 04/07/18 18:06 CULTURE BLOOD [BC] Stat - Assessment/Plan Last 24 Hours: My Active Orders 04/07/18 17:55 Peripheral IV Care [RC] . DIRECTED Sodium Chloride 0.9% [Saline Flush] 10 ml FLUSH ASDIRECTED PRN Blood Culture x2 Reflex Set [OM.PC] Stat Peripheral IV Insertion Adult [OM.PC] Stat 04/07/18 18:04 CULTURE BLOOD [BC] Stat 04/07/18 18:06 CULTURE BLOOD [BC] Stat I have read and agree with the documentation that has been completed regarding this visit. By signing this record, I attest that the documentation was completed in my physical presence and is an accurate record of the encounter.
--- NOTE | 2018-04-07 19:01 | PCM.HP ---
H&P History of Present Illness - General Date of Service: 04/07/18 Source of Information: Patient, EMS Notes Reviewed, Old Records History Limitations: Reports: No Limitations - History of Present Illness Initial Comments - Free Text/Narative: Mr. Neel Johnson is a 38-year-old man who is morbidly obese and he was admitted to [facility] on 09/02/17 with Cellulitis of Rt Leg. He has history of Cellulitis of Rt LE and happened multiple occasions. The Patient presents to ER today ( 04/07/18) with complaint of right lower extremity pain, redness and states the skin feels hot. Onset was this morning associated with fever and chills. Patient states that he drove to [place] yesterday ( 04/06/18) and worked a double shift at [employer] on his feet for 16 hours. He is not sure if he bumped his leg or not. He states that the symptoms are very similar to the symptoms he had 6 months ago when he had cellulitis, He had B/C drawn and got Ancef in ED. He will be admitted for Rt LE Cellulitis Onset of Symptoms: Reports: Today Location: Reports: Lower Extremity, Right Associated Symptoms: Reports: Fever/Chills - Related Data Allergies/Adverse Reactions: Allergies Allergy/AdvReac Type Severity Reaction Status Date / Time No Known Allergies Allergy Verified 04/07/18 17:38 Home Medications: Home Meds Ibuprofen [Ibu] 800 mg PO ASDIRECTED PRN 11/12/17 [History] Past Medical History - Past Health History Medical/Surgical History: Denies Medical/Surgical History HEENT History: Reports: Other (See Below) Other HEENT History: migraines Cardiovascular History: Reports: Other (See Below) Other Cardiovascular History: one episode of rapid heart rate Musculoskeletal History: Reports: Other (See Below) Other Musculoskeletal History: bone spurs bilaterally to ankles Neurological History: Reports: Brain Injury, Headaches, Chronic, Migraines Endocrine/Metabolic History: Reports: Obesity/BMI 30+ Dermatologic History: Reports: Cellulitis - Infectious Disease History Infectious Disease History: Reports: Chicken Pox - Past Surgical History HEENT Surgical History: Reports: None Social & Family History - Family History Family Medical History: Noncontributory Endocrine/Metabolic: Reports: Diabetes, type II Other Endocrine/Metabolic Family History: dad and grandparents on mom's side. - Tobacco Use Smoking Status *Q: Never Smoker - Caffeine Use Caffeine Use: Reports: None Other Caffeine Use: 3 20 oz bottles - Recreational Drug Use Recreational Drug Use: No - Living Situation & Occupation Living situation: Reports: , with Family Occupation: Employed H&P Review of Systems - Review of Systems: Review Of Systems: See Below General: Reports: Fever, Chills, Weakness. Denies: Diaphoresis, Decreased Appetite HEENT: Denies: Dysphasia, Headaches, Sinus Congestion, Visual Changes Pulmonary: Denies: Shortness of Breath, Wheezing, Pleuritic Chest Pain, Cough Cardiovascular: Denies: Chest Pain, Dyspnea on Exertion, Edema, Lightheadedness Gastrointestinal: Denies: Abdominal Pain, Constipation, Diarrhea, Nausea, Vomiting Genitourinary: Denies: Dysuria, Frequency, Burning, Urgency, Flank Pain Musculoskeletal: Reports: Leg Pain (Rt LE). Denies: Neck Pain, Shoulder Pain Skin: Reports: Erythema, Change in Color (Rt LE). Denies: Bruising, Pruritis Psychiatric: Denies: Confusion, Anxiety Neurological: Reports: Difficulty Walking. Denies: Numbness, Tingling, Tremors Hematologic/Lymphatic: Reports: No Symptoms Immunologic: Reports: No Symptoms Exam - Exam Exam: See Below - Vital Signs Vital Signs: Last Vital Signs Temp 38.1 C 04/07/18 17:29 Pulse 109 H 04/07/18 17:29 Resp 20 04/07/18 17:29 BP 126/83 04/07/18 17:29 Pulse Ox 99 04/07/18 17:29 Weight: 221.807 kg - Exam Quality Assessment: DVT Prophylaxis. No: Supplemental Oxygen, Urinary Catheter , Skin Breakdown General: Alert, Oriented, Cooperative, Other (obese) HEENT: Conjunctiva Clear, Hearing Intact, Mucosa Moist & [place], Pupils Equal Neck: Supple. No: Lymphadenopathy, Thyromegaly Lungs: Clear to Auscultation, Normal Respiratory Effort. No: Crackles, Wheezing Cardiovascular: Regular Rate, Regular Rhythm GI/Abdominal Exam: Normal Bowel Sounds, Soft, Non-Tender, No Distention. No: Guarding, Rigid, Rebound (Male) Exam: Deferred Rectal (Males) Exam: Deferred Back Exam: Normal Inspection Extremities: Normal Inspection, No Pedal Edema, Other (Rt LE erythematous and Tender to touch) Skin: Warm, Dry, Intact Neurological: Cranial Nerves Intact Neuro Extensive - Mental Status: Alert, Oriented x3, Normal Mood/Affect, Normal Cognition, Memory Intact Neuro Extensive - Motor, Sensory, Reflexes: CN II-XII Intact Psychiatric: Alert, Normal Affect, Normal Mood - Patient Data Lab Results Last 24 hrs: Laboratory Results - last 24 hr 04/07/18 04/07/18 04/07/18 Range/Units 18:04 18:04 18:04 WBC 11.6 H (5.0-10.0) 10^3/uL RBC 4.26 L (4.6-6.2) 10^6/uL Hgb 12.7 L (14.0-18.0) g/dL Hct 39.6 L (40.0-54.0) % MCV 93.0 (80-100) fL MCH 29.8 (27.0-34.0) pg MCHC 32.1 L (33.0-35.0) g/dL Plt Count 254 (150-450) 10^3/uL Neut % (Auto) 79.5 H (42.2-75.2) % Lymph % (Auto) 10.7 L (20.5-50.1) % [place] % (Auto) 8.4 H (2-8) % Eos % (Auto) 1.1 (1.0-3.0) % Baso % (Auto) 0.3 (0.0-1.0) % Sodium 134 L (135-145) mmol/L Potassium 3.6 (3.6-5.0) mmol/L Chloride 98 L (101-111) mmol/L Carbon Dioxide 25.0 (21.0-31.0) mmol/L Anion Gap 14.6 BUN 14 (7-18) mg/dL Creatinine 0.7 (0.6-1.3) mg/dL Est Cr Clr Drug Dosing 169.62 mL/min Estimated GFR (MDRD) > 60 BUN/Creatinine Ratio 20.00 Glucose 110 H (74-105) mg/dL Lactic Acid 0.9 (0.5-2.2) mmol/L Calcium 8.6 (8.4-10.2) mg/dl Total Bilirubin 0.9 (0.2-1.0) mg/dL AST 42 (10-42) IU/L ALT 37 (10-60) IU/L Alkaline Phosphatase 88 (42-121) IU/L C-Reactive Protein (0.0-1.3) mg/dL Total Protein 7.5 (6.7-8.2) g/dl Albumin 3.5 (3.2-5.5) g/dl Globulin 4.0 Albumin/Globulin Ratio 0.88 04/07/18 Range/Units 18:04 WBC (5.0-10.0) 10^3/uL RBC (4.6-6.2) 10^6/uL Hgb (14.0-18.0) g/dL Hct (40.0-54.0) % MCV (80-100) fL MCH (27.0-34.0) pg MCHC (33.0-35.0) g/dL Plt Count (150-450) 10^3/uL Neut % (Auto) (42.2-75.2) % Lymph % (Auto) (20.5-50.1) % [place] % (Auto) (2-8) % Eos % (Auto) (1.0-3.0) % Baso % (Auto) (0.0-1.0) % Sodium (135-145) mmol/L Potassium (3.6-5.0) mmol/L Chloride (101-111) mmol/L Carbon Dioxide (21.0-31.0) mmol/L Anion Gap BUN (7-18) mg/dL Creatinine (0.6-1.3) mg/dL Est Cr Clr Drug Dosing mL/min Estimated GFR (MDRD) BUN/Creatinine Ratio Glucose (74-105) mg/dL Lactic Acid (0.5-2.2) mmol/L Calcium (8.4-10.2) mg/dl Total Bilirubin (0.2-1.0) mg/dL AST (10-42) IU/L ALT (10-60) IU/L Alkaline Phosphatase (42-121) IU/L C-Reactive Protein 1.5 H (0.0-1.3) mg/dL Total Protein (6.7-8.2) g/dl Albumin (3.2-5.5) g/dl Globulin Albumin/Globulin Ratio Result Diagrams: 04/07/18 18:04 04/07/18 18:04 Damian Results Last 24 hrs: Microbiology 04/07/18 18:06 Anaerobic Blood Culture - Final Blood - Venous - Lab Draw - Problem List (1) Cellulitis of right lower extremity SNOMED Code(s): 761713651 ICD Code: L03.115 - CELLULITIS OF RIGHT LOWER LIMB Status: Acute Current Visit: Yes Problem List Initiated/Reviewed/Updated: Yes Orders Last 24hrs: Active Orders 24 hr Category Date Time Status Peripheral IV Care [RC] . DIRECTED Care 04/07/18 17:55 Active CULTURE BLOOD [BC] Stat Lab 04/07/18 18:04 Received CULTURE BLOOD [BC] Stat Lab 04/07/18 18:06 Results Sodium Chloride 0.9% [Saline Flush] Med 04/07/18 17:55 Active 10 ml FLUSH ASDIRECTED PRN Blood Culture x2 Reflex Set [OM.PC] Stat Oth 04/07/18 17:55 Ordered Peripheral IV Insertion Adult [OM.PC] Stat Oth 04/07/18 17:55 Ordered Medication Orders Sodium Chloride (Saline Flush) 10 ml FLUSH ASDIRECTED PRN PRN Reason: Keep Vein Open Last Admin: 04/07/18 18:30 Dose: 10 ml Assessment/Plan Comment:: This is a 38 Y/O Morbidly Obese Male with history of Depression and Recurrent Rt LE Cellulitis. He is admitted for Rt LE Cellulitis Impression and Plan: 1. Rt LE Cellulitis: -He had B/C done ( will follow) -Will start him on IV Zosyn -BMP in AM 2. GI Prophylaxis: Start Protonix 3. DVT prophylaxis: Start Enoxaparin Code Status: Code status Discussed and he is Full Code
[2018-04-07] MEDS ORDERED: Docusate Sodium 100 MG Cap PO PRN (19:11)
[2018-04-07] MEDS ORDERED: Acetaminophen 325 MG Tab PO PRN (19:11)
[2018-04-07] MEDS ORDERED: Ibuprofen 800 MG Tab PO PRN (19:40)
[2018-04-07] MEDS ORDERED: Piperacillin/Tazobactam 4.5 GM Vial ONE (21:01)
[2018-04-07] MEDS: Piperacillin/Tazobactam 4.5 GM in Sodium Chloride 0.9% 100 ML IV SCH (21:12)
[2018-04-08] MEDS: Piperacillin/Tazobactam 4.5 GM in Sodium Chloride 0.9% 100 ML IV SCH ×4 (02:56→21:23)
[2018-04-08] MEDS: Pantoprazole 40 MG Tab.CR PO SCH (06:22)
[2018-04-08 06:45] LABS: ANION GAP 12.7; CHLORIDE,CL 100 mmol/L (101-111); SODIUM,NA 135 mmol/L (135-145)
[2018-04-08] MEDS: Enoxaparin 40 MG/0.4 ML Syringe SUBCUT SCH (09:11)
[2018-04-08] MEDS: Sodium Chloride 0.9% 10 ML Syringe FLUSH PRN (09:12)
[2018-04-08] MEDS: Nystatin Crm 15 GM Tube TOP SCH (21:22)
[2018-04-09] MEDS: Piperacillin/Tazobactam 4.5 GM in Sodium Chloride 0.9% 100 ML IV SCH ×3 (03:12→14:40)
[2018-04-09] MEDS: Pantoprazole 40 MG Tab.CR PO SCH (06:01)
[2018-04-09 07:38] VITALS: BP 103/63
[2018-04-09] MEDS: Enoxaparin 40 MG/0.4 ML Syringe SUBCUT SCH (09:18)
[2018-04-09] MEDS: Nystatin Crm 15 GM Tube TOP SCH ×2 (09:19→14:41)
[2018-04-09] MEDS: Sodium Chloride 0.9% 10 ML Syringe FLUSH PRN (14:40)
== END 2018-04-09 15:15 | disposition home or self-care (01) | DRG 603 ==
LOC: DL.ED 16:13 → DL.MS 18:51 → UNDOADMIN 18:51 → DL.MS 19:11
PROVIDERS: ADMIT Internal Medicine Nephrology; ATTEND Internal Medicine Nephrology
DX: L03.115 Cellulitis of right lower limb (principal); Z68.44 Body mass index [BMI] 60.0-69.9, adult; E66.01 Morbid (severe) obesity due to excess calories; G43.909 Migraine, unspecified, not intractable, without status migrainosus; Z79.1 Long term (current) use of non-steroidal anti-inflammatories (NSAID); Z83.3 Family history of diabetes mellitus
CPT/HCPCS: 36415; 80048; 80053; 83605; 85025; 86140; 87040; 96374; 99284; A9270-GY; J0690; J1650; J2543; J7050

== ENCOUNTER 2019-01-05 22:05 | Emergency (ER) | payer BC, MEDICAID, OTHER ==
[2019-01-05 23:08] VITALS: BP 143/82; PULSE 115
--- NOTE | 2019-01-05 23:25 | EDM.PDOC ---
ED HPI GENERAL MEDICAL PROBLEM - General Chief Complaint: Lower Extremity Injury/Pain Stated Complaint: PT FELL DOWN. L ANKLE INJURY Time Seen by Provider: 01/05/19 23:05 Source of Information: Reports: Patient History Limitations: Reports: No Limitations - History of Present Illness INITIAL COMMENTS - FREE TEXT/NARRATIVE: This 38 yo male patient reports to the ED with left lateral ankle pain. The patient reports he was taking his dog out when his dog tripped him while on the steps. The patient reports he did catch himself, but heard a "pop" during the incident. The patient has had increased pain since the time of the incident. Onset: Today Onset Date: 01/05/19 Onset Time: 21:30 Duration: Constant Location: Reports: Lower Extremity, Left Quality: Reports: Ache, Dull, Stabbing Severity: Moderate Improves with: Reports: Rest Worsens with: Reports: Movement Context: Reports: Other Associated Symptoms: Reports: No Other Symptoms Treatments MAT ROLLER: Denies: Acetaminophen, NSAIDS Left Ankle Pain Score (Numeric/FACES): 6 - Related Data Allergies Allergy/AdvReac Type Severity Reaction Status Date / Time No Known Allergies Allergy Verified 01/05/19 23:07 Home Meds: Home Meds Ibuprofen [Ibu] 800 mg PO ASDIRECTED PRN 11/12/17 [History] Amoxicillin/Clavulanate K [Augmentin 875-125 MG] 1 tab PO BID #14 tablet [Rx] Doxycycline [Vibramycin] 100 mg PO BID #14 cap 04/09/18 [Rx] Past Medical History - Past Health History Medical/Surgical History: Denies Medical/Surgical History HEENT History: Reports: Other (See Below) Other HEENT History: migraines Cardiovascular History: Reports: Other (See Below) Other Cardiovascular History: one episode of rapid heart rate Musculoskeletal History: Reports: Other (See Below) Other Musculoskeletal History: bone spurs bilaterally to ankles Neurological History: Reports: Brain Injury, Headaches, Chronic, Migraines Endocrine/Metabolic History: Reports: Obesity/BMI 30+ Dermatologic History: Reports: Cellulitis - Infectious Disease History Infectious Disease History: Reports: Chicken Pox - Past Surgical History HEENT Surgical History: Reports: None Social & Family History - Family History Family Medical History: Noncontributory Endocrine/Metabolic: Reports: Diabetes, type II Other Endocrine/Metabolic Family History: dad and grandparents on mom's side. - Tobacco Use Smoking Status *Q: Unknown Ever Smoked - Caffeine Use Caffeine Use: Reports: Soda Other Caffeine Use: 3 20 oz bottles - Recreational Drug Use Recreational Drug Use: No - Living Situation & Occupation Living situation: Reports: , with Family Occupation: Employed Review of Systems - Review of Systems Review Of Systems: ROS reveals no pertinent complaints other than HPI. ED EXAM, GENERAL - Physical Exam Exam: See Below Exam Limited By: No Limitations General Appearance: Alert, WD/WN, Mild Distress, Obese Eye Exam: Bilateral Eye: EOMI, Normal Inspection, PERRL Ears: Normal External Exam, Normal Canal, Hearing Grossly Normal, Normal TMs Nose: Normal Inspection, Normal Mucosa, No Blood Throat/Mouth: Normal Inspection, Normal Lips, Normal Teeth, Normal Gums, Normal Oropharynx, Normal Voice, No Airway Compromise Head: Atraumatic, Normocephalic Neck: Normal Inspection, Supple, Non-Tender, Full Range of Motion Respiratory/Chest: No Respiratory Distress, Lungs Clear, Normal Breath Sounds, No Accessory Muscle Use, Chest Non-Tender Cardiovascular: Normal Peripheral Pulses, Regular Rate, Rhythm, No Edema, No Gallop, No JVD, No Murmur, No Rub GI/Abdominal: Normal Bowel Sounds, Soft, Non-Tender, No Organomegaly, No Distention, No Abnormal Bruit, No Mass, Other (morbid obesity) (Male) Exam: Deferred Rectal (Males) Exam: Deferred Back Exam: Normal Inspection, Full Range of Motion, NT Extremities: Leg Pain (left lateral ankle pain) Neurological: Alert, Oriented, CN II-XII Intact, Normal Cognition, Normal Gait, Normal Reflexes, No Motor/Sensory Deficits Psychiatric: Normal Affect, Normal Mood Skin Exam: Warm, Dry, Intact, Normal Color, No Rash Lymphatic: No Adenopathy Course - Vital Signs Last Recorded V/S: Last Vital Signs Temp 37.4 C 01/05/19 23:06 Pulse 115 H 01/05/19 23:06 Resp 18 01/05/19 23:06 BP 143/82 H 01/05/19 23:06 Pulse Ox 95 01/05/19 23:06 - Orders/Labs/Meds Orders: Active Orders 24 hr Category Date Time Status Ankle Min 3V Lt [CR] Urgent Exams 01/05/19 22:54 Taken Departure - Departure Time of Disposition: 23:46 Disposition: Home, Self-Care 01 Condition: Fair Clinical Impression: Strain of left ankle Qualifiers: Encounter type: initial encounter Qualified Code(s): S96.912A - Strain of unspecified muscle and tendon at ankle and foot level, left foot, initial encounter - Discharge Information *PRESCRIPTION DRUG MONITORING PROGRAM REVIEWED*: Not Applicable *COPY OF PRESCRIPTION DRUG MONITORING REPORT IN PATIENT ERICA: Not Applicable Instructions: How to Use a Stirrup Ankle Brace, [id number], Ankle Sprain, [id number] Forms: ED Department Discharge Care Plan Goals: The patient was advised of the examination and x-ray results during the visit. The patient was placed in a Stir-up ankle brace while in the emergency department. The patient was encouraged to rest, ice and elevate his left ankle over the next 48 hours. If the patient has any additional symptoms or concerns, the patient should either return to the emergency department or visit his primary care facility. - My Orders Last 24 Hours: My Active Orders 01/05/19 22:54 Ankle Min 3V Lt [CR] Urgent - Assessment/Plan Last 24 Hours: My Active Orders 01/05/19 22:54 Ankle Min 3V Lt [CR] Urgent
== END 2019-01-05 23:53 | disposition home or self-care (01) ==
LOC: DL.ED 22:05
DX: S96.912A Strain of unspecified muscle and tendon at ankle and foot level, left foot, initial encounter (principal); W01.0XXA Fall on same level from slipping, tripping and stumbling without subsequent striking against object, initial encounter
CPT/HCPCS: 29515; 73610-LT; 99283-25

== ENCOUNTER 2019-07-31 11:03 | Emergency (ER) | payer BC ==
[2019-07-31 11:17] VITALS: PULSE 117
--- NOTE | 2019-07-31 11:37 | EDM.PDOC ---
ED HPI GENERAL MEDICAL PROBLEM - General Chief Complaint: Respiratory Problem Stated Complaint: cough Time Seen by Provider: 07/31/19 11:30 Source of Information: Reports: Patient, RN, RN Notes Reviewed History Limitations: Reports: No Limitations - History of Present Illness INITIAL COMMENTS - FREE TEXT/NARRATIVE: Patient presents to ER with complaint of harsh cough for nearly 2 weeks. Patient states he has had intermittent fever and chills. Patient admits to production with the cough at times which is yellow. Patient denies any chest pains or shortness of breath. Admits to sore throat with cough. Denies nausea/ vomiting/diarrhea. Patient states he was tested for COVID-19 last and found out Friday that it was negative. She states he used cough medication last evening. Onset: Gradual Onset Date: 07/20/19 Duration: Constant Throat Pain Score (Numeric/FACES): 4 - Related Data Allergies Allergy/AdvReac Type Severity Reaction Status Date / Time No Known Allergies Allergy Verified 07/31/19 11:17 Home Meds: Home Meds Ibuprofen [Advil] 600 mg PO ASDIRECTED 07/31/19 [History] Past Medical History - Past Health History Medical/Surgical History: Denies Medical/Surgical History HEENT History: Reports: Impaired Vision, Other (See Below) Other HEENT History: migraines Cardiovascular History: Reports: Other (See Below) Other Cardiovascular History: one episode of rapid heart rate Musculoskeletal History: Reports: Other (See Below) Other Musculoskeletal History: bone spurs bilaterally to ankles Neurological History: Reports: Brain Injury, Headaches, Chronic, Migraines Endocrine/Metabolic History: Reports: Obesity/BMI 30+ Dermatologic History: Reports: Cellulitis - Infectious Disease History Infectious Disease History: Reports: Chicken Pox - Past Surgical History HEENT Surgical History: Reports: None Social & Family History - Family History Family Medical History: Noncontributory Endocrine/Metabolic: Reports: Diabetes, type II Other Endocrine/Metabolic Family History: dad and grandparents on mom's side. - Tobacco Use Smoking Status *Q: Never Smoker Second Hand Smoke Exposure: No - Caffeine Use Caffeine Use: Reports: None Other Caffeine Use: 3 20 oz bottles - Recreational Drug Use Recreational Drug Use: No - Living Situation & Occupation Living situation: Reports: , with Family Occupation: Employed ED ROS GENERAL - Review of Systems Review Of Systems: Comprehensive ROS is negative, except as noted in HPI. ED EXAM, GENERAL - Physical Exam Exam: See Below Exam Limited By: No Limitations General Appearance: Alert, WD/WN, No Apparent Distress Eye Exam: Bilateral Eye: EOMI, Normal Inspection Ears: Normal External Exam, Hearing Grossly Normal Nose: Normal Inspection Throat/Mouth: Normal Voice, No Airway Compromise, Other (Tonsils +3, erythematous) Head: Atraumatic, Normocephalic Neck: Normal Inspection, Supple, Non-Tender, Full Range of Motion Respiratory/Chest: No Respiratory Distress, No Accessory Muscle Use, Decreased Breath Sounds, Rhonchi Cardiovascular: Normal Peripheral Pulses, Regular Rate, Rhythm, No Edema, No Gallop, No JVD, No Murmur, No Rub Peripheral Pulses: 2+: Radial (L), Radial (R) GI/Abdominal: Normal Bowel Sounds, Soft, Non-Tender (Male) Exam: Deferred Rectal (Males) Exam: Deferred Back Exam: Normal Inspection, Full Range of Motion, NT Extremities: Normal Inspection, Normal Range of Motion, Non-Tender, Normal Capillary Refill, No Pedal Edema Neurological: Alert, Oriented, CN II-XII Intact, Normal Cognition, Normal Gait, Normal Reflexes, No Motor/Sensory Deficits Psychiatric: Normal Affect, Normal Mood Skin Exam: Warm, Dry, Intact, Normal Color, No Rash Lymphatic: No Adenopathy Course - Vital Signs Last Recorded V/S: Last Vital Signs Temp 96.7 F L 07/31/19 12:07 Pulse 117 H 07/31/19 12:07 Resp 18 07/31/19 12:07 BP 130/74 07/31/19 12:07 Pulse Ox 92 L 07/31/19 12:07 - Orders/Labs/Meds Orders: Active Orders 24 hr Category Date Time Status Chest 2V [CR] Urgent Exams 07/31/19 11:34 Taken STREP SCRN A RAPID W CULT CONF [RM] Stat Lab 07/31/19 11:35 Received - Radiology Interpretation Free Text/Narrative:: Chest xray: FINDINGS: Lungs: No focal peripheral lung consolidation, air bronchogram formation, or silhouette sign. Pleural space: No pleural effusion or pneumothorax. Heart/Mediastinum: The cardiac silhouette is enlarged. The mediastinal contours are normal. Bones/joints: There are multilevel bridging osteophytes in the spine. IMPRESSION: No pneumonia. Thank you for allowing us to participate in the care of your patient. Dictated and Authenticated by: Luis Lucio MD 07/31/2019 12:01 PM Central Time ([place] & [place]) See rad report Departure - Departure Time of Disposition: 12:08 Disposition: Home, Self-Care 01 Condition: Good Clinical Impression: Upper respiratory infection Qualifiers: URI type: unspecified URI Qualified Code(s): J06.9 - Acute upper respiratory infection, unspecified - Discharge Information *PRESCRIPTION DRUG MONITORING PROGRAM REVIEWED*: No *COPY OF PRESCRIPTION DRUG MONITORING REPORT IN PATIENT ERICA: No Instructions: Viral Respiratory Infection, [id number], Upper Respiratory Infection, Adult, [id number], Cough, Adult, [id number] Forms: ED Department Discharge Additional Instructions: RX: Prerna [place] May use Tylenol and/or Ibuprofen as directed for pain Follow up with your primary care facility if no improvement Sepsis Event Note - Evaluation Sepsis Screening Result: No Definite Risk - Focused Exam Vital Signs: Vital Signs Temp Pulse Resp BP Pulse Ox 07/31/19 12:07 96.7 F L 117 H 18 130/74 92 L 07/31/19 11:10 98.7 F 117 H 18 149/88 H 94 L Date Exam was Performed: 07/31/19 Time Exam was Performed: 12:08 - My Orders Last 24 Hours: My Active Orders 07/31/19 11:34 Chest 2V [CR] Urgent 07/31/19 11:35 STREP SCRN A RAPID W CULT CONF [RM] Stat - Assessment/Plan Last 24 Hours: My Active Orders 07/31/19 11:34 Chest 2V [CR] Urgent 07/31/19 11:35 STREP SCRN A RAPID W CULT CONF [RM] Stat
[2019-07-31 12:08] VITALS: BP 130/74
== END 2019-07-31 12:14 | disposition home or self-care (01) ==
LOC: DL.ED 11:03
DX: J06.9 Acute upper respiratory infection, unspecified (principal); E66.9 Obesity, unspecified; Z68.44 Body mass index [BMI] 60.0-69.9, adult
CPT/HCPCS: 71046; 87081; 87430; 99283-25

== ENCOUNTER 2019-08-15 09:10 | Emergency (ER) | payer BC ==
[2019-08-15 09:28] VITALS: BP 134/80; PULSE 115
[2019-08-15] MEDS: Oxymetazoline 0.05% Nasal Spray 15 ML Bottle NAS ONE (09:44)
[2019-08-15] MEDS: Amoxicillin/Clavulanate K 875-125 MG Tab PO ONE (09:45)
[2019-08-15] MEDS: Lidocaine 1% with EPINEPHrine 1:100,000 20 ML MDV ONE (09:45)
[2019-08-15] MEDS: Acetaminophen/HYDROcodone 325-10 MG Tab PO ONE (09:46)
[2019-08-15] MEDS: Benzonatate 100 MG Cap PO ONE (09:46)
--- NOTE | 2019-08-15 10:30 | EDM.PDOC ---
Scribed by Katharine Stanley 08/15/19 1004 for Yanick Sanchez MD ED HPI GENERAL MEDICAL PROBLEM - General Chief Complaint: ENT Problem Stated Complaint: nose bleed Time Seen by Provider: 08/15/19 09:26 Source of Information: Reports: Patient, RN, RN Notes Reviewed History Limitations: Reports: No Limitations - History of Present Illness INITIAL COMMENTS - FREE TEXT/NARRATIVE: Patient presents to ER with c/o left sided nose bleeds for 2 days and a cough for 3 weeks. Pt admits to mild shortness of breath. Denies fever, chills, chest pain, recent travel, or exposure to Covid positive people. Pt states he recently tested negative for Covid. Onset: Sudden Duration: Getting Worse, Intermittent Location: Reports: Chest (and nose) Quality: Reports: Other (Denies pain) Severity: Moderate Improves with: Reports: None Worsens with: Reports: None Associated Symptoms: Reports: No Other Symptoms - Related Data Allergies Allergy/AdvReac Type Severity Reaction Status Date / Time No Known Allergies Allergy Verified 08/15/19 09:17 Home Meds: Home Meds Ibuprofen [Advil] 600 mg PO ASDIRECTED 07/31/19 [History] Past Medical History - Past Health History Medical/Surgical History: Denies Medical/Surgical History HEENT History: Reports: Impaired Vision, Other (See Below) Other HEENT History: migraines Cardiovascular History: Reports: Other (See Below) Other Cardiovascular History: one episode of rapid heart rate Musculoskeletal History: Reports: Other (See Below) Other Musculoskeletal History: bone spurs bilaterally to ankles Neurological History: Reports: Brain Injury, Headaches, Chronic, Migraines Endocrine/Metabolic History: Reports: Obesity/BMI 30+ Dermatologic History: Reports: Cellulitis - Infectious Disease History Infectious Disease History: Reports: Chicken Pox - Past Surgical History HEENT Surgical History: Reports: None Social & Family History - Family History Family Medical History: Noncontributory Endocrine/Metabolic: Reports: Diabetes, type II Other Endocrine/Metabolic Family History: dad and grandparents on mom's side. - Caffeine Use Caffeine Use: Reports: None Other Caffeine Use: 3 20 oz bottles - Living Situation & Occupation Living situation: Reports: , with Family Occupation: Employed ED ROS ENT - Review of Systems Review Of Systems: Comprehensive ROS is negative, except as noted in HPI. ED EXAM, ENT - Physical Exam Exam: See Below Exam Limited By: No Limitations General Appearance: Alert, No Apparent Distress, Obese Eye Exam: Bilateral Eye: Normal Inspection Ears: Hearing Grossly Normal Nose: Active Bleeding (Left nare, appears to be coming from either high proximal septum or posterior, unable to visualize bleeding site) Mouth/Throat: Normal Inspection, Other (Nasal blood in posterior pharynx) Head: Atraumatic, Normocephalic Neck: Normal Inspection Respiratory/Chest: No Respiratory Distress, No Accessory Muscle Use, Decreased Breath Sounds, Crackles, Other (Dry cough). No: Rales, Rhonchi, Wheezing, Stridor Cardiovascular: Regular Rate, Rhythm, Tachycardia Neurological: Alert, Oriented, CN II-XII Intact, No Motor/Sensory Deficits Psychiatric: Normal Mood Skin: Warm, Dry, Intact, Normal Color, No Rash ED ENT PROCEDURES - Epistaxis Procedure Indication: Epistaxis, Uncontrolled Recent anticoagulants/antiplatlets: Yes Uncontrolled HTN: No Recent septal/nasal surgery: No Site of bleeding: Left Nare Clearing of clots: Patient Blew Nose Topical Meds: Other (Afrin) Ice pack to area: No Anterior Packing: Inflatable Nasal Tampon Posterior packing: Long Nasal Tampon Local anesthesia - Lidocaine (Xylocaine): 1% with EPI Local Anesthetic Volume: 4cc Complications: No Course - Vital Signs Last Recorded V/S: Last Vital Signs Temp 98.7 F 08/15/19 09:12 Pulse 115 H 08/15/19 09:12 Resp 20 08/15/19 09:12 BP 134/80 08/15/19 09:12 Pulse Ox 94 L 08/15/19 09:12 - Orders/Labs/Meds Orders: Active Orders 24 hr Category Date Time Status Chest 2V [CR] Stat Exams 08/15/19 09:54 Taken Meds: Medications Discontinued Medications Generic Name Dose Route Start Last Admin Trade Name Freq PRN Reason Stop Dose Admin Hydrocodone Bitart/Acetaminophen 1 tab 08/15/19 09:34 08/15/19 09:46 [place] 325-10 Mg PO 08/15/19 09:35 1 tab ONETIME ONE Administration Amoxicillin/Clavulanate Potassium 1 tab 08/15/19 09:31 08/15/19 09:45 Augmentin 875 Mg/125 Mg PO 08/15/19 09:32 1 tab ONETIME ONE Administration Benzonatate 200 mg 08/15/19 09:33 08/15/19 09:46 Tessalon Perles PO 08/15/19 09:34 200 mg ONETIME ONE Administration Lidocaine/Epinephrine 20 ml 08/15/19 09:32 08/15/19 09:45 Xylocaine 1% With Epinephrine 1:100,000 .XX 08/15/19 09:33 20 ml ONETIME ONE Administration Oxymetazoline HCl 1 ml 08/15/19 09:32 08/15/19 09:44 Afrin Original 0.05% Nasal Velpen KAY 08/15/19 09:33 1 ml ONETIME ONE Administration - Radiology Interpretation Free Text/Narrative:: [facility] Final Radiology Report Call: [phone] assistance Online chat: [email or web address] Name: LATOYA AKHTAR Age: 39Years M Date: 08/15/2019 SSN: -- : [id number] Study: XR CHEST 2 VIEWS FRONTAL & LAT Requesting Physician: YANICK SANCHEZ Images: 2 Addl Studies: Provided Clinical History: Contrast: Contrast Medium: Contrast Amount: Contrast Method: CONFIDENTIALITY STATEMENT This report is intended only for use by the referring physician, and only in accordance with law. If you received this in error, call [phone]. Page 1 of 1 PROCEDURE INFORMATION: Exam: XR Chest, 2 Views Exam date and time: 08/15/2019 9:56 AM Age: 39 years old Clinical indication: Cough TECHNIQUE: Imaging protocol: XR of the chest Views: 2 views. COMPARISON: CR Chest 2V 07/31/2019 11:41 AM FINDINGS: Lungs: No focal peripheral lung consolidation, air bronchogram formation, or silhouette sign. Pleural space: No pleural effusion or pneumothorax. Heart/Mediastinum: The cardiac silhouette is enlarged. The mediastinal contours are normal. Bones/joints: There are multilevel bridging osteophytes in the spine. Soft tissues: There are bilateral epicardial fat pads. IMPRESSION: No pneumonia. Thank you for allowing us to participate in the care of your patient. Dictated and Authenticated by: Luis Lucio MD 08/15/2019 10:25 AM Central Time ([place] & [place]) Departure - Departure Time of Disposition: 10:27 Disposition: Home, Self-Care 01 Condition: Good Clinical Impression: Epistaxis Acute bronchitis Qualifiers: Bronchitis organism: other organism Qualified Code(s): J20.8 - Acute bronchitis due to other specified organisms - Discharge Information *PRESCRIPTION DRUG MONITORING PROGRAM REVIEWED*: Not Applicable *COPY OF PRESCRIPTION DRUG MONITORING REPORT IN PATIENT ERICA: Not Applicable Instructions: Nosebleed, [id number], Acute Bronchitis, Adult Forms: ED Department Discharge Additional Instructions: Rx: Augmentin 875mg Rx: Tessalon Perles 200mg Do not blow, wipe, rub, or pick nose. Follow up in clinic in 2 days for nasal packing removal and Ear/Nose/Throat referral if needed. Sepsis Event Note - Focused Exam Vital Signs: Vital Signs Temp Pulse Resp BP Pulse Ox 08/15/19 09:12 98.7 F 115 H 20 134/80 94 L Date Exam was Performed: 08/15/19 Time Exam was Performed: 10:26 - My Orders Last 24 Hours: My Active Orders 08/15/19 09:54 Chest 2V [CR] Stat - Assessment/Plan Last 24 Hours: My Active Orders 08/15/19 09:54 Chest 2V [CR] Stat I have read and agree with the documentation that has been completed regarding this visit. By signing this record, I attest that the documentation was completed in my physical presence and is an accurate record of the encounter.
== END 2019-08-15 10:41 | disposition home or self-care (01) ==
LOC: DL.ED 09:10
DX: J20.8 Acute bronchitis due to other specified organisms (principal); R04.0 Epistaxis; E66.9 Obesity, unspecified; Z68.44 Body mass index [BMI] 60.0-69.9, adult
CPT/HCPCS: 30905; 71046; 99284; A9270

== ENCOUNTER 2020-04-08 04:58 | Emergency (ER) | payer BC ==
--- NOTE | 2020-04-08 08:17 | EDM.PDOC ---
ED HPI GENERAL MEDICAL PROBLEM - General Chief Complaint: Skin Complaint Stated Complaint: CELLULITIS RIGHT LEG Time Seen by Provider: 04/08/20 08:14 Source of Information: Reports: Patient, Old Records, RN, RN Notes Reviewed History Limitations: Reports: No Limitations - History of Present Illness INITIAL COMMENTS - FREE TEXT/NARRATIVE: Pt presents to ER from home by POV with c/o suspected cellulitis to the right lower leg. Onset: Gradual Duration: Constant, Getting Worse Location: Reports: Lower Extremity, Right Quality: Reports: Ache, Burning, Same as Previous Episode Severity: Moderate Improves with: Reports: None Worsens with: Reports: Movement (weight bearing and palpation) Associated Symptoms: Reports: No Other Symptoms right leg Pain Score (Numeric/FACES): 4 - Related Data Allergies Allergy/AdvReac Type Severity Reaction Status Date / Time No Known Allergies Allergy Verified 04/08/20 08:27 Home Meds: Home Meds Ibuprofen [Advil] 600 mg PO ASDIRECTED 07/31/19 [History] Past Medical History - Past Health History Medical/Surgical History: Denies Medical/Surgical History HEENT History: Reports: Impaired Vision, Other (See Below) Other HEENT History: migraines Cardiovascular History: Reports: Other (See Below) Other Cardiovascular History: one episode of rapid heart rate Respiratory History: Reports: None Gastrointestinal History: Reports: None Genitourinary History: Reports: None Musculoskeletal History: Reports: Other (See Below) Other Musculoskeletal History: bone spurs bilaterally to ankles Neurological History: Reports: Brain Injury, Headaches, Chronic, Migraines Psychiatric History: Reports: None Endocrine/Metabolic History: Reports: Obesity/BMI 30+ Hematologic History: Reports: None Immunologic History: Reports: None Oncologic (Cancer) History: Reports: None Dermatologic History: Reports: Cellulitis - Infectious Disease History Infectious Disease History: Reports: Chicken Pox - Past Surgical History HEENT Surgical History: Reports: None Social & Family History - Family History Family Medical History: No Pertinent Family History Endocrine/Metabolic: Reports: Diabetes, type II Other Endocrine/Metabolic Family History: dad and grandparents on mom's side. - Caffeine Use Caffeine Use: Reports: None Other Caffeine Use: 3 20 oz bottles - Living Situation & Occupation Living situation: Reports: , with Family Occupation: Employed Review of Systems - Review of Systems Review Of Systems: Comprehensive ROS is negative, except as noted in HPI. ED EXAM, GENERAL - Physical Exam Exam: See Below Exam Limited By: No Limitations General Appearance: Alert, No Apparent Distress, Obese Respiratory/Chest: No Respiratory Distress Cardiovascular: Normal Peripheral Pulses, Regular Rate, Rhythm Extremities: Normal Range of Motion, Normal Capillary Refill, Leg Pain (Rt), Increased Warmth (Rt lower leg), Redness (Rt lower leg). No: Joint Swelling, Dannie's Sign Neurological: Alert, Oriented, No Motor/Sensory Deficits Psychiatric: Normal Mood Course - Vital Signs Last Recorded V/S: Last Vital Signs Temp 98.5 F 04/08/20 08:21 Pulse 93 04/08/20 08:21 Resp 18 04/08/20 08:21 BP 124/84 04/08/20 08:21 Pulse Ox 97 04/08/20 08:21 - Orders/Labs/Meds Orders: Active Orders 24 hr Category Date Time Status Sulfamethoxazole/Trimethoprim [Septra DS] Med 04/08/20 08:31 Once 1 tab PO ONETIME ONE cephALEXin [Keflex] Med 04/08/20 08:30 Once 500 mg PO ONETIME ONE Departure - Departure Time of Disposition: 08:34 Disposition: Home, Self-Care 01 Condition: Good Clinical Impression: Cellulitis of right lower leg - Discharge Information *PRESCRIPTION DRUG MONITORING PROGRAM REVIEWED*: Not Applicable *COPY OF PRESCRIPTION DRUG MONITORING REPORT IN PATIENT ERICA: Not Applicable Instructions: Cellulitis, Adult Forms: ED Department Discharge Additional Instructions: Rx: Cephalexin 500mg Rx: Bactrim DS Follow up in clinic if not improving as expected. Sepsis Event Note (ED) - Focused Exam Vital Signs: Vital Signs Temp Pulse Resp BP Pulse Ox 04/08/20 08:21 98.5 F 93 18 124/84 97 - My Orders Last 24 Hours: My Active Orders 04/08/20 08:30 cephALEXin [Keflex] 500 mg PO ONETIME ONE 04/08/20 08:31 Sulfamethoxazole/Trimethoprim [Septra DS] 1 tab PO ONETIME ONE - Assessment/Plan Last 24 Hours: My Active Orders 04/08/20 08:30 cephALEXin [Keflex] 500 mg PO ONETIME ONE 04/08/20 08:31 Sulfamethoxazole/Trimethoprim [Septra DS] 1 tab PO ONETIME ONE
[2020-04-08 08:22] VITALS: BP 124/84; PULSE 93
[2020-04-08] MEDS ORDERED: Cephalexin 500 MG Cap PO ONE (08:30)
[2020-04-08] MEDS ORDERED: Sulfamethoxazole/Trimethoprim 800-160 MG Tab PO ONE (08:31)
== END 2020-04-08 08:42 | disposition home or self-care (01) ==
LOC: DL.ED 04:58
DX: L03.115 Cellulitis of right lower limb (principal); E66.9 Obesity, unspecified; Z68.43 Body mass index [BMI] 50.0-59.9, adult
CPT/HCPCS: 99283

== ENCOUNTER 2020-04-27 04:04 | Emergency (ER) | payer BC ==
[2020-04-27 04:12] VITALS: BP 131/79; PULSE 102
--- NOTE | 2020-04-27 04:17 | EDM.PDOC ---
ED HPI GENERAL MEDICAL PROBLEM - General Stated Complaint: BOTTOM OF LEFT FOOT UNDER BIG TOE RED SPOT Time Seen by Provider: 04/27/20 04:08 Source of Information: Reports: Patient History Limitations: Reports: No Limitations - History of Present Illness INITIAL COMMENTS - FREE TEXT/NARRATIVE: blister noted last sam base left great toe, tender this am when getting ready for work. Not diabetic. Hx cellulitis in right leg . Admits poor circulation. No injury. No fever or chills. 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 Left Toe-Hailux Pain Score (Numeric/FACES): 6 - Related Data Allergies Allergy/AdvReac Type Severity Reaction Status Date / Time No Known Allergies Allergy Verified 04/27/20 04:10 Home Meds: Home Meds Ibuprofen [Advil] 600 mg PO ASDIRECTED 07/31/19 [History] Past Medical History - Past Health History Medical/Surgical History: Denies Medical/Surgical History HEENT History: Reports: Impaired Vision, Other (See Below) Other HEENT History: migraines Cardiovascular History: Reports: Other (See Below) Other Cardiovascular History: one episode of rapid heart rate Respiratory History: Reports: None Gastrointestinal History: Reports: None Genitourinary History: Reports: None Musculoskeletal History: Reports: Other (See Below) Other Musculoskeletal History: bone spurs bilaterally to ankles Neurological History: Reports: Brain Injury, Headaches, Chronic, Migraines Psychiatric History: Reports: None Endocrine/Metabolic History: Reports: Obesity/BMI 30+ Hematologic History: Reports: None Immunologic History: Reports: None Oncologic (Cancer) History: Reports: None Dermatologic History: Reports: Cellulitis - Infectious Disease History Infectious Disease History: Reports: Chicken Pox, Novel Coronavirus - Past Surgical History HEENT Surgical History: Reports: None Social & Family History - Family History Family Medical History: No Pertinent Family History Endocrine/Metabolic: Reports: Diabetes, type II Other Endocrine/Metabolic Family History: dad and grandparents on mom's side. - Caffeine Use Caffeine Use: Reports: None Other Caffeine Use: 3 20 oz bottles - Living Situation & Occupation Living situation: Reports: , with Family Occupation: Employed ED ROS GENERAL - Review of Systems Review Of Systems: Comprehensive ROS is negative, except as noted in HPI. ED EXAM, GENERAL - Physical Exam Exam: See Below Exam Limited By: No Limitations General Appearance: Alert, No Apparent Distress, Obese (morbid) Ears: Normal External Exam, Hearing Grossly Normal Throat/Mouth: Normal Voice Respiratory/Chest: No Respiratory Distress, Normal Breath Sounds Cardiovascular: Regular Rate, Rhythm Peripheral Pulses: 1+: Dorsalis Pedis (L) Extremities: Normal Range of Motion Neurological: Alert, Oriented Psychiatric: Normal Affect, Normal Mood Skin Exam: Warm, Wound/Incision (1.5x2cm open cracked pressure ulcer base great toe left plantar no erythema, no drainage.), Other (chronic skin change consistent with PVD) Course - Vital Signs Last Recorded V/S: Last Vital Signs Temp 97.3 F 04/27/20 04:10 Pulse 102 H 04/27/20 04:10 Resp 20 04/27/20 04:10 BP 131/79 04/27/20 04:10 Pulse Ox 96 04/27/20 04:10 Departure - Departure Time of Disposition: 04:43 Disposition: Home, Self-Care 01 Condition: Good Clinical Impression: Pressure ulcer Qualifiers: Pressure injury location: dorsum of foot Pressure injury stage: stage 2 Laterality: left Qualified Code(s): L89.892 - Pressure ulcer of other site, stage 2 - Discharge Information *PRESCRIPTION DRUG MONITORING PROGRAM REVIEWED*: No *COPY OF PRESCRIPTION DRUG MONITORING REPORT IN PATIENT ERICA: No Instructions: Preventing Pressure Injuries Additional Instructions: wide toe shoe limit weight bearing Aquaphor lotion to foot clinic follow up Friday or Friday to recheck Follow up if increased redness or drainage from wound doxycycline 100mg one twice daily for 7 days Sepsis Event Note (ED) - Focused Exam Vital Signs: Vital Signs Temp Pulse Resp BP Pulse Ox 04/27/20 04:10 97.3 F 102 H 20 131/79 96
[2020-04-27] MEDS ORDERED: Doxycycline 100 MG in Sodium Chloride 0.9% 100 ML IV ONE (04:28)
[2020-04-27] MEDS ORDERED: Doxycycline Monohydrate 100 MG Cap PO ONE (04:35)
== END 2020-04-27 04:41 | disposition home or self-care (01) ==
LOC: DL.ED 04:04
DX: L89.892 Pressure ulcer of other site, stage 2 (principal); E66.9 Obesity, unspecified; Z68.43 Body mass index [BMI] 50.0-59.9, adult
CPT/HCPCS: 99283; A9270

== ENCOUNTER 2020-05-15 18:21 | Emergency (ER) | payer OTHER, BC ==
--- NOTE | 2020-05-15 18:54 | EDM.PDOC ---
ED HPI GENERAL MEDICAL PROBLEM - General Chief Complaint: Upper Extremity Injury/Pain Stated Complaint: FELL SLIPPED ON ICE. RIGHT SHOULDER DOWN Time Seen by Provider: 05/15/20 19:00 Source of Information: Reports: Patient, RN, RN Notes Reviewed History Limitations: Reports: No Limitations - History of Present Illness INITIAL COMMENTS - FREE TEXT/NARRATIVE: Patient presents to the ED via personal vehicle with complaints of pain to right shoulder, right upper back, and right hip following a fall from ground level this afternoon. The patient states he tripped outside while starting his car. He denies loss of consciousness and did not hit his head; he is not on blood thinners. He denies loss of sensory of motor function to his right upper or lower extremities. He denies headache, vision changes, chest pain, or shortness of breath. The patient denies history of injury to the affected extremities. - Related Data Allergies Allergy/AdvReac Type Severity Reaction Status Date / Time No Known Allergies Allergy Verified 05/15/20 18:39 Home Meds: Home Meds . [No Known Home Meds] 05/15/20 [History] Past Medical History - Past Health History Medical/Surgical History: Denies Medical/Surgical History HEENT History: Reports: Impaired Vision, Other (See Below) Other HEENT History: migraines Cardiovascular History: Reports: Other (See Below) Other Cardiovascular History: one episode of rapid heart rate Respiratory History: Reports: None Gastrointestinal History: Reports: None Genitourinary History: Reports: None Musculoskeletal History: Reports: Other (See Below) Other Musculoskeletal History: bone spurs bilaterally to ankles Neurological History: Reports: Brain Injury, Headaches, Chronic, Migraines Psychiatric History: Reports: None Endocrine/Metabolic History: Reports: Obesity/BMI 30+ Hematologic History: Reports: None Immunologic History: Reports: None Oncologic (Cancer) History: Reports: None Dermatologic History: Reports: Cellulitis - Infectious Disease History Infectious Disease History: Reports: Chicken Pox, Novel Coronavirus - Past Surgical History HEENT Surgical History: Reports: None Social & Family History - Family History Family Medical History: No Pertinent Family History Endocrine/Metabolic: Reports: Diabetes, type II Other Endocrine/Metabolic Family History: dad and grandparents on mom's side. - Caffeine Use Caffeine Use: Reports: None Other Caffeine Use: 3 20 oz bottles - Living Situation & Occupation Living situation: Reports: , with Family Occupation: Employed Review of Systems - Review of Systems Review Of Systems: Comprehensive ROS is negative, except as noted in HPI. ED EXAM, GENERAL - Physical Exam Exam: See Below Exam Limited By: No Limitations General Appearance: Alert, No Apparent Distress Eye Exam: Bilateral Eye: EOMI, Normal Inspection, PERRL (4mm) Throat/Mouth: Normal Inspection, Normal Voice, No Airway Compromise Head: Atraumatic, Normocephalic Respiratory/Chest: No Accessory Muscle Use, Decreased Breath Sounds. No: Chest Non-Tender (Tenderness of palpation to right lateral chest), Respiratory Distress, Crackles, Rales, Rhonchi, Wheezing, Stridor Cardiovascular: Normal Peripheral Pulses, Regular Rate, Rhythm, No Edema, No Gallop, No JVD, No Murmur, No Rub Peripheral Pulses: 2+: Radial (L), Radial (R) GI/Abdominal: Normal Bowel Sounds, Soft, Non-Tender, No Distention, Pelvis Stable Back Exam: Normal Inspection, Decreased Range of Motion (Limited movement due to pain). No: Paraspinal Tenderness, Vertebral Tenderness Extremities: No Pedal Edema, Normal Capillary Refill, Arm Pain (To right shoulder and right upper back), Leg Pain (To right lateral hip), Limited Range of Motion (To right shoulder d/t pain). No: Joint Swelling, Mottled, Pallor Neurological: Alert, Oriented, CN II-XII Intact, Normal Cognition, Normal Gait, No Motor/Sensory Deficits Psychiatric: Normal Affect, Normal Mood Skin Exam: Warm, Dry, Intact, Normal Color, No Rash. No: Ecchymosis, Erythema, Jaundice, Mottled, Pallor, Petechiae Course - Vital Signs Last Recorded V/S: Last Vital Signs Temp 98.6 F 05/15/20 18:25 Pulse 113 H 05/15/20 18:25 Resp 20 05/15/20 18:25 BP 129/90 05/15/20 18:25 Pulse Ox 97 05/15/20 18:25 - Re-Assessments/Exams Free Text/Narrative Re-Assessment/Exam: 05/15/20 Xray of right ribs remarkable for possible fracture of the 9th and 10th ribs. Shoulder xray unremarkable for acute processes. Discussed findings with patient. Will treat rib fracture with supportive cares, including IS and OTC analgesics. Patient to followup with primary care provider in one week. Red flag signs and symptoms which would warrant reevaluation discussed; patient verbalized understanding and agreement with the plan of care. Departure - Departure Time of Disposition: 20:06 Disposition: Home, Self-Care 01 Condition: Good Clinical Impression: Fall from ground level, Acute right hip pain Right rib fracture Qualifiers: Encounter type: initial encounter Rib fracture type: multiple ribs Fracture type: closed Qualified Code(s): S22.41XA - Multiple fractures of ribs, right side, initial encounter for closed fracture Right shoulder pain Qualifiers: Chronicity: acute Qualified Code(s): M25.511 - Pain in right shoulder - Discharge Information *PRESCRIPTION DRUG MONITORING PROGRAM REVIEWED*: Not Applicable *COPY OF PRESCRIPTION DRUG MONITORING REPORT IN PATIENT ERICA: Not Applicable Instructions: Rib Fracture, [id number] Forms: ED Department Discharge Additional Instructions: 1.) Use your incentive spirometer every hours; ten breaths while awake. 2.) You may take acetaminophen (Tylenol) 1000mg every six hours, while pain persists. You may take ibuprofen (Motrin/Advil) 400mg every six hours, while pain persists. You may stagger these medications so you are taking a dose every three hours. 3.) Follow up with your primary care provider in one week, or sooner as warranted, regarding today's visit. Sepsis Event Note (ED) - Focused Exam Vital Signs: Vital Signs Temp Pulse Resp BP Pulse Ox 05/15/20 18:25 98.6 F 113 H 20 129/90 97
[2020-05-15 18:56] VITALS: BP 129/90; PULSE 113
--- NOTE | 2020-05-15 19:50 | CR ---
PROCEDURE INFORMATION: Exam: XR Right Ribs Exam date and time: 05/15/2020 6:37 PM Age: 40 years old Clinical indication: Injury or trauma; Fall; Rib area; Blunt trauma (contusions or hematomas); Additional info: Fell in ice, RT shoulder posterior rib pain TECHNIQUE: Imaging protocol: XR Right ribs. Views: 2 views. Total images: 4 COMPARISON: CR Chest 2V 08/15/2019 9:56 AM FINDINGS: Bones/joints: Slight cortical contour irregularity in the right lateral 9th and 10th ribs could represent nondisplaced fractures, age indeterminate. No blastic or lytic lesions. Glenohumeral alignment and a.c. joint alignment are normal. Lungs: The visualized lung lobato are clear. Pleural space: No pneumothorax. No evidence of pleural effusion. Heart/Mediastinum: Visualized mediastinal structures are unremarkable. Intraperitoneal space: Visualized upper abdominal structures are unremarkable. Soft tissues: Normal. IMPRESSION: Question possible nondisplaced right lateral 9th and 10th rib fractures. No pneumothorax.
--- NOTE | 2020-05-15 19:51 | CR ---
PROCEDURE INFORMATION: Exam: XR Right Shoulder Exam date and time: 05/15/2020 6:56 PM Age: 40 years old Clinical indication: Injury or trauma; Fall; Blunt trauma (contusions or hematomas); Shoulder; Right; Additional info: Fell in ice, RT shoulder posterior rib pain TECHNIQUE: Imaging protocol: XR Right shoulder. Views: 2 or more views. Total images: 3 COMPARISON: No relevant prior studies available. FINDINGS: Bones/joints: No fractures. Glenohumeral alignment is normal. Minimal inferior glenoid spurring. A.C. joint alignment is normal. No blastic or lytic lesions. Pleural space: No visible pleural effusion or pneumothorax. Soft tissues: No gross soft tissue abnormalities. Other findings: Adjacent ribs and lung parenchyma are unremarkable. IMPRESSION: No acute osseous abnormalities.
== END 2020-05-15 20:35 | disposition home or self-care (01) ==
LOC: DL.ED 18:21
DX: S22.41XA Multiple fractures of ribs, right side, initial encounter for closed fracture (principal); M25.511 Pain in right shoulder; M25.551 Pain in right hip; E66.9 Obesity, unspecified; Z68.44 Body mass index [BMI] 60.0-69.9, adult; W00.0XXA Fall on same level due to ice and snow, initial encounter
CPT/HCPCS: 71100-RT; 73030-RT; 99283; 99284-25

== ENCOUNTER 2020-05-20 09:08 | Emergency (ER) | payer BC, OTHER ==
[2020-05-20 09:21] VITALS: BP 142/98; PULSE 121
[2020-05-20] MEDS ORDERED: Sodium Chloride 0.9% 1,000 ML IV ONE (09:27)
[2020-05-20] MEDS ORDERED: Tamsulosin 0.4 MG Cap.ER PO ONE (09:28)
--- NOTE | 2020-05-20 09:33 | EDM.PDOC ---
"ED HPI GENERAL MEDICAL PROBLEM - General Chief Complaint: Flank Pain Stated Complaint: BROKE RIBS FRIDAY, BLOOD IN URINE TODAY Time Seen by Provider: 05/20/20 09:29 Source of Information: Reports: Patient, Old Records, RN, RN Notes Reviewed History Limitations: Reports: No Limitations - History of Present Illness INITIAL COMMENTS - FREE TEXT/NARRATIVE: Patient presents to the ED via personal vehicle with complaints of hematuria and right flank pain. The patient states the pain in his right flank began abruptly about one hour ago when he was attempting to urinate. He characterizes the pain as sharp in nature and states is radiates into his right abdomen. He states the pain is waxing and waning in severity; at it's worst, it is a 10/10. He denies fever, shaking chills, nausea, vomiting, loose stools, or dysuria. He denies a history of kidney stones. He has not taken any medication for this problem. He denies tobacco, alcohol, or recreational drug use. Right Flank Pain Score (Numeric/FACES): 7 - Related Data Allergies Allergy/AdvReac Type Severity Reaction Status Date / Time No Known Allergies Allergy Verified 05/20/20 09:22 Home Meds: Home Meds . [No Known Home Meds] 05/15/20 [History] Past Medical History - Past Health History Medical/Surgical History: Denies Medical/Surgical History HEENT History: Reports: Impaired Vision, Other (See Below) Other HEENT History: migraines Cardiovascular History: Reports: Other (See Below) Other Cardiovascular History: one episode of rapid heart rate Respiratory History: Reports: None Gastrointestinal History: Reports: None Genitourinary History: Reports: None Musculoskeletal History: Reports: Other (See Below) Other Musculoskeletal History: bone spurs bilaterally to ankles Neurological History: Reports: Brain Injury, Headaches, Chronic, Migraines Psychiatric History: Reports: None Endocrine/Metabolic History: Reports: Obesity/BMI 30+ Hematologic History: Reports: None Immunologic History: Reports: None Oncologic (Cancer) History: Reports: None Dermatologic History: Reports: Cellulitis - Infectious Disease History Infectious Disease History: Reports: Chicken Pox, Novel Coronavirus - Past Surgical History HEENT Surgical History: Reports: None Social & Family History - Family History Family Medical History: No Pertinent Family History Endocrine/Metabolic: Reports: Diabetes, type II Other Endocrine/Metabolic Family History: dad and grandparents on mom's side. - Tobacco Use Tobacco Use Status *Q: Never Tobacco User - Caffeine Use Caffeine Use: Reports: None Other Caffeine Use: 3 20 oz bottles - Recreational Drug Use Recreational Drug Use: No - Living Situation & Occupation Living situation: Reports: , with Family Occupation: Employed ED ROS GENERAL - Review of Systems Review Of Systems: Comprehensive ROS is negative, except as noted in HPI. ED EXAM, RENAL/ - Physical Exam Exam: See Below Exam Limited By: No Limitations General Appearance: Alert, No Apparent Distress, Obese Eye Exam: Bilateral Eye: EOMI, Normal Inspection, PERRL (3mm) Respiratory/Chest: No Respiratory Distress, Lungs Clear, Normal Breath Sounds, No Accessory Muscle Use, Chest Non-Tender Cardiovascular: Normal Peripheral Pulses, Regular Rate, Rhythm, No Edema, No Gallop, No JVD, No Murmur, No Rub GI/Abdominal: Soft, Non-Tender, No Distention, No Mass, Pelvis Stable, Abnormal Bowel Sounds (Hypoactive bowel sounds). No: Guarding, Rigid, Rebound (Male) Exam: Deferred Rectal (Males) Exam: Deferred Back Exam: Full Range of Motion, CVA Tenderness (R). No: CVA Tenderness (L), Muscle Spasm, Paraspinal Tenderness, Vertebral Tenderness Neurological: Alert, Oriented, CN II-XII Intact, Normal Cognition, Normal Gait, No Motor/Sensory Deficits Psychiatric: Normal Affect, Normal Mood Skin Exam: Warm, Dry, Intact, Normal Color, No Rash. No: Ecchymosis, Erythema, Increased Warmth, Jaundice, Mottled, Pallor, Petechiae Course - Vital Signs Last Recorded V/S: Last Vital Signs Temp 97.2 F 05/20/20 09:20 Pulse 121 H 05/20/20 09:20 Resp 16 05/20/20 09:20 BP 142/98 H 05/20/20 09:20 Pulse Ox 96 05/20/20 09:20 - Orders/Labs/Meds Labs: Laboratory Tests 05/20/20 05/20/20 05/20/20 Range/Units 09:29 09:29 11:52 WBC 9.2 (5.0-10.0) 10^3/uL RBC 4.86 (4.6-6.2) 10^6/uL Hgb 14.5 D (14.0-18.0) g/dL Hct 44.6 (40.0-54.0) % MCV 91.8 (80-100) fL MCH 29.8 (27.0-34.0) pg MCHC 32.5 L (33.0-35.0) g/dL Plt Count 277 (150-450) 10^3/uL Neut % (Auto) 74.4 (42.2-75.2) % Lymph % (Auto) 17.1 L (20.5-50.1) % [place] % (Auto) 7.3 (2-8) % Eos % (Auto) 0.8 L (1.0-3.0) % Baso % (Auto) 0.4 (0.0-1.0) % Sodium 139 (136-145) mmol/L Potassium 4.0 (3.5-5.1) mmol/L Chloride 101 (98-107) mmol/L Carbon Dioxide 29 (21-32) mmol/L Anion Gap 13.0 (7-13) mEq/L BUN 13 (7-18) mg/dL Creatinine 0.77 (0.70-1.30) mg/dL Est Cr Clr Drug Dosing 151.23 mL/min Estimated GFR (MDRD) > 60 BUN/Creatinine Ratio 16.9 (No establ ref range) Glucose 147 H (74-99) mg/dL Calcium 8.8 (8.5-10.1) mg/dL Total Bilirubin 0.4 (0.2-1.0) mg/dL AST 28 (15-37) U/L ALT 39 (16-63) U/L Alkaline Phosphatase 121 H (46-116) U/L Total Protein 8.6 H (6.4-8.2) g/dL Albumin 3.5 (3.4-5.0) g/dL Globulin 5.1 Albumin/Globulin Ratio 0.7 Urine Color Yellow (YELLOW) Urine Appearance Cloudy (CLEAR) Urine pH 5.5 (5.0-9.0) Ur Specific [place] >= 1.030 (1.005-1.030) Urine Protein Trace H (NEGATIVE) Urine Glucose (UA) Negative (NEGATIVE) Urine Ketones Negative (NEGATIVE) Urine Occult Blood Trace-intact H (NEGATIVE) Urine Nitrite Negative (NEGATIVE) Urine Bilirubin Small H (NEGATIVE) Urine Urobilinogen 0.2 (0.2-1.0) mg/dL Ur Leukocyte Esterase Negative (NEGATIVE) Urine RBC 10-20 H /HPF Urine WBC 0-5 (0-5/HPF) /HPF Ur Epithelial Cells Moderate H (NOT SEEN) /HPF Amorphous Sediment Many (NOT SEEN) /HPF Urine Bacteria Moderate H (0-FEW/HPF) /HPF Urine Mucus Many H (NOT SEEN) /LPF Meds: Medications Discontinued Medications Generic Name Dose Route Start Last Admin Trade Name Freq PRN Reason Stop Dose Admin Sodium Chloride 1,000 mls @ 999 mls/hr 05/20/20 09:27 05/20/20 09:40 Normal Saline IV 05/20/20 10:27 999 mls/hr .BOLUS ONE Administration Ketorolac Tromethamine 30 mg 05/20/20 10:14 05/20/20 10:18 Toradol IVPUSH 05/20/20 10:15 30 mg ONETIME ONE Administration Tamsulosin HCl 0.4 mg 05/20/20 09:28 05/20/20 09:40 Flomax PO 05/20/20 09:29 0.4 mg ONETIME ONE Administration - Radiology Interpretation Free Text/Narrative:: [facility] Final Radiology Report Call: [phone] assistance Online chat: [email or web address] Name: LATOYA AKHTAR Age: 40Years M Date: 05/20/2020 SSN: -- : [id number] Study: CT ABDOMEN PELVIS WO CONT Requesting Physician: Celia Barriga Images: [phone] Addl Studies: Provided Clinical History: Right flank pain; Gross hematuria in urine today Contrast: Without Contrast Medium: Contrast Amount: Contrast Method: Page 1 of 2 PROCEDURE INFORMATION: Exam: CT Abdomen And Pelvis Without Contrast Exam date and time: 05/20/2020 10:25 AM Age: 40 years old Clinical indication: Other: Right flank pain; Gross hematuria in urine today TECHNIQUE: Imaging protocol: Computed tomography of the abdomen and pelvis without contrast. Radiation optimization: All CT scans at this facility use at least one of these dose optimization techniques: automated exposure control; mA and/or kV adjustment per patient size (includes targeted exams where dose is matched to clinical indication); or iterative reconstruction. COMPARISON: No relevant prior studies available. FINDINGS: Limitations: None. Liver: Enlarged liver measuring up to 21 cm in its longest sagittal span. No masses. No stigmata of liver cirrhosis. Gallbladder and bile ducts: Normal. Pancreas: Normal. Spleen: Normal. Adrenal glands: Solid left adrenal nodule with fat attenuation measures 2.6 x 1.9 cm and compatible with a benign left adrenal adenoma not requiring imaging follow-up. Kidneys and ureters: Normal. Stomach and bowel: Normal stomach and small bowel. Appendix: Normal. Intraperitoneal space: No ascites, pneumoperitoneum or peritoneal lesion. Vasculature: Normal. LATOYA AKHTAR | Final Radiology Report CONFIDENTIALITY STATEMENT This report is intended only for use by the referring physician, and only in accordance with law. If you received this in error, call [phone]. Page 2 of 2 Lymph nodes: None enlarged or otherwise suspicious. Urinary bladder: Normal. Reproductive: Normal prostate and seminal vesicles. Bones/joints: No acute fracture or suspicious osseous lesion. Soft tissues: No mass or abdominal hernia. IMPRESSION: 1. No uroliths or acute disease. 2. Hepatomegaly. 3. Benign left adrenal adenoma not requiring imaging follow-up. COMMENTS: Consistent with the [employer]'s Incidental Findings Committee white paper (J Am Julius Radiol 2017): For any incidental adrenal lesion greater than 1 cm but less than 4 cm classified in this report as benign, likely benign, or containing fat (including classification as an adenoma or myelolipoma), no follow-up imaging is recommended per consensus recommendations based on imaging criteria. Further lab evaluation could be pursued if warranted based on clinical findings. Thank you for allowing us to participate in the care of your patient. Dictated and Authenticated by: Richard Billy MD 05/20/2020 10:51 AM Central Time ([place] & [place]) - Re-Assessments/Exams Free Text/Narrative Re-Assessment/Exam: 05/20/20 CBC unremarkable for infectious process or anemia; no elevation in WBC or left shift noted. UA noted to contain occult blood, non-lyced, and many amorphous sediment. CMP remarkable for a glucose of 147 - patient did attest to eating a meal prior to presentation today, as well as a mildly elevated Alkaline Phos. CT of abdomen and pelvis unremarkable for acute processes, incidental finding of left adrenal adenoma noted. Given the size of the adenoma, not follow up required. Discussed findings of lab work, imaging, and examination with patient. Given history, patient exam presentation, and UA, will treat empirically for kidney stones despite no evidence of uroliths upon imaging. Patient prescribed Flomax and Ketorolac. Red flag signs and symptoms which would warrant reevaluation discussed with patient. He verbalized understanding and agreement with the plan of care. Departure - Departure Time of Disposition: 12:33 Disposition: Home, Self-Care 01 Condition: Good Clinical Impression: Kidney stones, Right flank pain, Renal cell adenoma of left kidney Hematuria Qualifiers: Hematuria type: gross Qualified Code(s): R31.0 - Gross hematuria - Discharge Information *PRESCRIPTION DRUG MONITORING PROGRAM REVIEWED*: Not Applicable *COPY OF PRESCRIPTION DRUG MONITORING REPORT IN PATIENT ERICA: Not Applicable Instructions: Kidney Stones, [id number] Referrals: Nuvia Montanez MD [Primary Care Provider] - Forms: ED Department Discharge Additional Instructions: Rx: Flomax Rx: Ketorolac 1.) Follow up with your primary care provider early next week regarding today's visit. 2.) Drink plenty of water to stay hydrated. 3.) Eat small, frequent meals to avoid nausea, should it develop with the stone pain. Sepsis Event Note (ED) - Evaluation Sepsis Screening Result: No Definite Risk"
[2020-05-20 09:54] LABS: CHLORIDE,CL 101 mmol/L (98-107); SODIUM,NA 139 mmol/L (136-145)
[2020-05-20] MEDS ORDERED: Ketorolac 30 MG/ML SDV IVPUSH ONE (10:14)
--- NOTE | 2020-05-20 10:52 | CT ---
PROCEDURE INFORMATION: Exam: CT Abdomen And Pelvis Without Contrast Exam date and time: 05/20/2020 10:25 AM Age: 40 years old Clinical indication: Other: Right flank pain; Gross hematuria in urine today TECHNIQUE: Imaging protocol: Computed tomography of the abdomen and pelvis without contrast. Radiation optimization: All CT scans at this facility use at least one of these dose optimization techniques: automated exposure control; mA and/or kV adjustment per patient size (includes targeted exams where dose is matched to clinical indication); or iterative reconstruction. COMPARISON: No relevant prior studies available. FINDINGS: Limitations: None. Liver: Enlarged liver measuring up to 21 cm in its longest sagittal span. No masses. No stigmata of liver cirrhosis. Gallbladder and bile ducts: Normal. Pancreas: Normal. Spleen: Normal. Adrenal glands: Solid left adrenal nodule with fat attenuation measures 2.6 x 1.9 cm and compatible with a benign left adrenal adenoma not requiring imaging follow-up. Kidneys and ureters: Normal. Stomach and bowel: Normal stomach and small bowel. Appendix: Normal. Intraperitoneal space: No ascites, pneumoperitoneum or peritoneal lesion. Vasculature: Normal. Lymph nodes: None enlarged or otherwise suspicious. Urinary bladder: Normal. Reproductive: Normal prostate and seminal vesicles. Bones/joints: No acute fracture or suspicious osseous lesion. Soft tissues: No mass or abdominal hernia. IMPRESSION: 1. No uroliths or acute disease. 2. Hepatomegaly. 3. Benign left adrenal adenoma not requiring imaging follow-up. COMMENTS: Consistent with the [employer]'s Incidental Findings Committee white paper (J Am Julius Radiol 2017): For any incidental adrenal lesion greater than 1 cm but less than 4 cm classified in this report as benign, likely benign, or containing fat (including classification as an adenoma or myelolipoma), no follow-up imaging is recommended per consensus recommendations based on imaging criteria. Further lab evaluation could be pursued if warranted based on clinical findings.
== END 2020-05-20 12:46 | disposition home or self-care (01) ==
LOC: DL.ED 09:08
DX: N20.0 Calculus of kidney (principal); R31.0 Gross hematuria; D30.02 Benign neoplasm of left kidney; E66.9 Obesity, unspecified; Z68.44 Body mass index [BMI] 60.0-69.9, adult
CPT/HCPCS: 36415; 74176; 80053; 81001; 85025; 96374; 99284; A9270; J1885; J7030

== ENCOUNTER 2020-09-03 13:58 | Emergency (ER) | payer BC ==
[2020-09-03 14:58] VITALS: BP 141/78; PULSE 92
[2020-09-03 15:22] LABS: ANION GAP 13.2 mEq/L (7-13); CHLORIDE,CL 103 mmol/L (98-107); SODIUM,NA 142 mmol/L (136-145)
--- NOTE | 2020-09-03 19:27 | EDM.PDOC ---
ED HPI GENERAL MEDICAL PROBLEM - General Chief Complaint: Skin Complaint Stated Complaint: [id number] RIGHT LEG CELULITIS SWOLLEN Time Seen by Provider: 09/03/20 19:00 Source of Information: Reports: Patient, RN, RN Notes Reviewed History Limitations: Reports: No Limitations - History of Present Illness INITIAL COMMENTS - FREE TEXT/NARRATIVE: Neel presents to the ED via personal vehicle with complaints of transient swelling to right lower extremity. The patient reports a history of cellulitis to this extremity and is concerned he is developing an infection again. He stat es he noted swelling at approximately 1300 today after waking up from a nap, however now notes that the swelling is completely dissipated. He denies fever, shaking chills, erythema, pain, or decreased sensation to the extremity. The patient states he has not taken any medications for his symptoms. Right Leg Pain Score (Numeric/FACES): 7 - Related Data Allergies Allergy/AdvReac Type Severity Reaction Status Date / Time No Known Allergies Allergy Verified 09/03/20 14:58 Home Meds: Home Meds . [No Known Home Meds] 05/15/20 [History] Past Medical History - Past Health History Medical/Surgical History: Denies Medical/Surgical History HEENT History: Reports: Impaired Vision, Other (See Below) Other HEENT History: migraines Cardiovascular History: Reports: Other (See Below) Other Cardiovascular History: one episode of rapid heart rate Respiratory History: Reports: None Gastrointestinal History: Reports: None Genitourinary History: Reports: None Musculoskeletal History: Reports: Other (See Below) Other Musculoskeletal History: bone spurs bilaterally to ankles Neurological History: Reports: Brain Injury, Headaches, Chronic, Migraines Psychiatric History: Reports: None Endocrine/Metabolic History: Reports: Obesity/BMI 30+ Hematologic History: Reports: None Immunologic History: Reports: None Oncologic (Cancer) History: Reports: None Dermatologic History: Reports: Cellulitis - Infectious Disease History Infectious Disease History: Reports: Chicken Pox, Novel Coronavirus - Past Surgical History HEENT Surgical History: Reports: None Social & Family History - Family History Family Medical History: No Pertinent Family History Endocrine/Metabolic: Reports: Diabetes, type II Other Endocrine/Metabolic Family History: dad and grandparents on mom's side. - Tobacco Use Tobacco Use Status *Q: Never Tobacco User - Caffeine Use Caffeine Use: Reports: None Other Caffeine Use: 3 20 oz bottles - Recreational Drug Use Recreational Drug Use: No - Living Situation & Occupation Living situation: Reports: , with Family Occupation: Employed ED ROS GENERAL - Review of Systems Review Of Systems: Comprehensive ROS is negative, except as noted in HPI. ED EXAM, SKIN/RASH Exam: See Below Exam Limited By: No Limitations General Appearance: Alert, No Apparent Distress, Obese Eye Exam: Bilateral Eye: EOMI, Normal Inspection, PERRL (3mm) Throat/Mouth: Normal Inspection, Normal Oropharynx, Normal Voice, No Airway Compromise Respiratory/Chest: No Respiratory Distress, Lungs Clear, Normal Breath Sounds, No Accessory Muscle Use, Chest Non-Tender Cardiovascular: Normal Peripheral Pulses, Regular Rate, Rhythm, No Edema, No Gallop, No JVD, No Murmur, No Rub Peripheral Pulses: 1+: Posterior Tibial (L), Posterior Tibial (R), 2+: Radial (L), Radial (R), Dorsalis Pedis (L), Dorsalis Pedis (R) GI/Abdominal: Normal Bowel Sounds, No Distention, No Abnormal Bruit, No Mass, Pelvis Stable Back Exam: Normal Inspection, Full Range of Motion Extremities: Normal Range of Motion, Non-Tender, No Pedal Edema, Normal Capillary Refill, Other (Dry flaky skin to bilateral lower extremities and feet). No: Joint Swelling, Leg Pain, Increased Warmth, Redness Neurological: Alert, Oriented, CN II-XII Intact, Normal Cognition, Normal Gait, No Motor/Sensory Deficits Psychiatric: Normal Affect, Normal Mood Skin: Warm, Intact, No Rash. No: Ecchymosis, Erythema Course - Vital Signs Last Recorded V/S: Last Vital Signs Temp 98.2 F 09/03/20 14:54 Pulse 92 09/03/20 14:54 Resp 16 09/03/20 14:54 BP 141/78 H 09/03/20 14:54 Pulse Ox 64 L 09/03/20 14:54 - Orders/Labs/Meds Labs: Laboratory Tests 09/03/20 09/03/20 Range/Units 14:58 14:58 WBC 7.8 (5.0-10.0) 10^3/uL RBC 4.74 (4.6-6.2) 10^6/uL Hgb 14.2 (14.0-18.0) g/dL Hct 43.7 (40.0-54.0) % MCV 92.2 (80-100) fL MCH 30.0 (27.0-34.0) pg MCHC 32.5 L (33.0-35.0) g/dL Plt Count 289 (150-450) 10^3/uL Neut % (Auto) 68.2 (42.2-75.2) % Lymph % (Auto) 20.1 L (20.5-50.1) % [place] % (Auto) 10.0 H (2-8) % Eos % (Auto) 1.3 (1.0-3.0) % Baso % (Auto) 0.4 (0.0-1.0) % Sodium 142 (136-145) mmol/L Potassium 4.2 (3.5-5.1) mmol/L Chloride 103 (98-107) mmol/L Carbon Dioxide 30 (21-32) mmol/L Anion Gap 13.2 H (7-13) mEq/L BUN 11 (7-18) mg/dL Creatinine 0.80 (0.70-1.30) mg/dL Est Cr Clr Drug Dosing 121.13 mL/min Estimated GFR (MDRD) > 60 BUN/Creatinine Ratio 13.8 (No establ ref range) Glucose 144 H (70-99) mg/dL Calcium 8.6 (8.5-10.1) mg/dL Total Bilirubin 0.3 (0.2-1.0) mg/dL AST 29 (15-37) U/L ALT 45 (16-63) U/L Alkaline Phosphatase 137 H (46-116) U/L Total Protein 7.7 (6.4-8.2) g/dL Albumin 3.2 L (3.4-5.0) g/dL Globulin 4.5 Albumin/Globulin Ratio 0.71 - Re-Assessments/Exams Free Text/Narrative Re-Assessment/Exam: 09/03/20 Examination benign for cellulitis. CBC and CMP unremarkable for acute processes. Findings of examination and lab work reviewed with patient. Will treat dry cracked skin with Aloe [place]. Patient verbalized understanding and agreement with the plan of care. Departure - Departure Time of Disposition: 19:24 Disposition: Home, Self-Care 01 Condition: Good Clinical Impression: Pain in right lower leg, History of cellulitis, Dry skin - Discharge Information *PRESCRIPTION DRUG MONITORING PROGRAM REVIEWED*: Not Applicable *COPY OF PRESCRIPTION DRUG MONITORING REPORT IN PATIENT ERICA: Not Applicable Forms: ED Department Discharge Additional Instructions: Rx: Aloe [place] cream 1.) Apply cream to both legs and feet daily. 2.) Keep legs and feet clean and dry to help prevent cellulitis. 3.) Drink plenty of water to stay hydrated. Sepsis Event Note (ED) - Evaluation Sepsis Screening Result: Possible Sepsis Risk
== END 2020-09-03 19:31 | disposition home or self-care (01) ==
LOC: DL.ED 13:58
DX: M79.661 Pain in right lower leg (principal); L98.8 Other specified disorders of the skin and subcutaneous tissue; M79.89 Other specified soft tissue disorders; E66.9 Obesity, unspecified; Z68.44 Body mass index [BMI] 60.0-69.9, adult; Z86.16 Personal history of COVID-19
CPT/HCPCS: 36415; 80053; 85025; 99283

== ENCOUNTER 2020-09-11 10:51 | Emergency (ER) | payer BC ==
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
[2020-09-11] MEDS ORDERED: Acetaminophen/HYDROcodone 325-10 MG Tab PO ONE (11:06)
[2020-09-11 11:31] VITALS: BP 121/93; PULSE 123
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
== END 2020-09-11 12:25 | disposition home or self-care (01) ==
LOC: DL.ED 10:51
DX: S06.0X0A Concussion without loss of consciousness, initial encounter (principal); E66.9 Obesity, unspecified; M62.838 Other muscle spasm; S01.81XA Laceration without foreign body of other part of head, initial encounter; X58.XXXA Exposure to other specified factors, initial encounter
CPT/HCPCS: 70450; 72125; 99283-25; 99284; A9270-GY

== ENCOUNTER 2020-10-15 22:06 | Emergency (ER) | payer BC ==
[2020-10-15 22:24] VITALS: BP 143/80; PULSE 110
--- NOTE | 2020-10-15 22:45 | EDM.PDOC ---
ED HPI GENERAL MEDICAL PROBLEM - General Chief Complaint: Skin Complaint Stated Complaint: SWOLLEN LEG Time Seen by Provider: 10/15/20 22:15 Source of Information: Reports: Patient History Limitations: Reports: No Limitations - History of Present Illness INITIAL COMMENTS - FREE TEXT/NARRATIVE: pain swelling RLE since yesterday. Hx recurrent cellulitis of extremity. fever 3 days prior none today. Right Lower Leg Pain Score (Numeric/FACES): 8 - Related Data Allergies Allergy/AdvReac Type Severity Reaction Status Date / Time No Known Allergies Allergy Verified 10/15/20 22:24 Home Meds: Home Meds . [No Known Home Meds] 05/15/20 [History] Past Medical History - Past Health History Medical/Surgical History: Denies Medical/Surgical History HEENT History: Reports: Impaired Vision, Other (See Below) Other HEENT History: migraines Cardiovascular History: Reports: Other (See Below) Other Cardiovascular History: one episode of rapid heart rate Respiratory History: Reports: None Gastrointestinal History: Reports: None Genitourinary History: Reports: None Musculoskeletal History: Reports: Other (See Below) Other Musculoskeletal History: bone spurs bilaterally to ankles Neurological History: Reports: Brain Injury, Headaches, Chronic, Migraines Psychiatric History: Reports: None Endocrine/Metabolic History: Reports: Obesity/BMI 30+ Hematologic History: Reports: None Immunologic History: Reports: None Oncologic (Cancer) History: Reports: None Dermatologic History: Reports: Cellulitis - Infectious Disease History Infectious Disease History: Reports: Chicken Pox, Novel Coronavirus - Past Surgical History HEENT Surgical History: Reports: None Social & Family History - Family History Family Medical History: No Pertinent Family History Endocrine/Metabolic: Reports: Diabetes, type II Other Endocrine/Metabolic Family History: dad and grandparents on mom's side. - Tobacco Use Tobacco Use Status *Q: Never Tobacco User Second Hand Smoke Exposure: No - Caffeine Use Caffeine Use: Reports: None Other Caffeine Use: 3 20 oz bottles - Recreational Drug Use Recreational Drug Use: No - Living Situation & Occupation Living situation: Reports: , with Family Occupation: Employed ED ROS GENERAL - Review of Systems Review Of Systems: Comprehensive ROS is negative, except as noted in HPI. ED EXAM, SKIN/RASH Exam: See Below General Appearance: Alert, Obese (morbid) Eye Exam: Bilateral Eye: EOMI Ears: Normal External Exam Nose: Normal Inspection Throat/Mouth: Normal Inspection Head: Atraumatic, Normocephalic Neck: Normal Inspection Respiratory/Chest: No Respiratory Distress, Lungs Clear, Normal Breath Sounds Cardiovascular: Normal Peripheral Pulses, Regular Rate, Rhythm, Tachycardia GI/Abdominal: Normal Bowel Sounds Extremities: Normal Range of Motion, Increased Warmth (right lower leg ), Redness Neurological: Alert, Oriented Psychiatric: Normal Affect Skin: Dry, Erythema, Wound/Incision (small crusted area mid alexander right lower leg, few excoriations to medial lower leg. chronic skin discoloration right mid to alexander with redness warmth and induration to mid 1/3 to ankle anterior medial, faint redness lateral ) Location, Skin: Upper Extremity, Right Course - Vital Signs Last Recorded V/S: Last Vital Signs Temp 98 F 10/15/20 22:12 Pulse 110 H 10/15/20 22:12 Resp 18 10/15/20 22:12 BP 143/80 H 10/15/20 22:12 Pulse Ox 94 L 10/15/20 22:12 - Orders/Labs/Meds Orders: Active Orders 24 hr Category Date Time Status CULTURE BLOOD [BC] Stat Lab 10/15/20 22:55 Received CULTURE BLOOD [BC] Stat Lab 10/15/20 23:00 Received Blood Culture x2 Reflex Set [OM.PC] Stat Oth 10/15/20 22:40 Ordered Labs: Laboratory Tests 10/15/20 10/15/20 10/15/20 Range/Units 22:55 22:55 22:55 WBC 8.0 (5.0-10.0) 10^3/uL RBC 4.15 L (4.6-6.2) 10^6/uL Hgb 12.4 L D (14.0-18.0) g/dL Hct 37.9 L (40.0-54.0) % MCV 91.3 (80-100) fL MCH 29.9 (27.0-34.0) pg MCHC 32.7 L (33.0-35.0) g/dL Plt Count 303 (150-450) 10^3/uL Neut % (Auto) 63.2 (42.2-75.2) % Lymph % (Auto) 21.8 (20.5-50.1) % [place] % (Auto) 12.1 H (2-8) % Eos % (Auto) 2.1 (1.0-3.0) % Baso % (Auto) 0.8 (0.0-1.0) % Sodium 140 (136-145) mmol/L Potassium 3.5 (3.5-5.1) mmol/L Chloride 102 (98-107) mmol/L Carbon Dioxide 26 (21-32) mmol/L Anion Gap 15.5 H (7-13) mEq/L BUN 14 (7-18) mg/dL Creatinine 0.99 (0.70-1.30) mg/dL Est Cr Clr Drug Dosing 117.63 mL/min Estimated GFR (MDRD) > 60 BUN/Creatinine Ratio 14.1 (No establ ref range) Glucose 187 H (70-99) mg/dL Lactic Acid 1.3 (0.4-2.0) mmol/L Calcium 8.4 L (8.5-10.1) mg/dL Total Bilirubin 0.4 (0.2-1.0) mg/dL AST 31 (15-37) U/L ALT 42 (16-63) U/L Alkaline Phosphatase 111 (46-116) U/L Total Protein 7.9 (6.4-8.2) g/dL Albumin 3.0 L (3.4-5.0) g/dL Globulin 4.9 Albumin/Globulin Ratio 0.61 Meds: Medications Discontinued Medications Generic Name Dose Route Start Last Admin Trade Name Freq PRN Reason Stop Dose Admin Piperacillin Sod/Tazobactam 100 mls @ 200 mls/hr 10/15/20 22:46 10/15/20 22:58 Sod 3.375 gm/ Sodium Chloride IV 10/15/20 23:15 200 mls/hr ONETIME ONE Administration Ketorolac Tromethamine 30 mg 10/15/20 22:46 10/15/20 22:58 Ketorolac 30 Mg/Ml Sdv IVPUSH 10/15/20 22:47 30 mg ONETIME ONE Administration Departure - Departure Time of Disposition: 23:40 Disposition: Home, Self-Care 01 Condition: Good Clinical Impression: Cellulitis of lower extremity Qualifiers: Laterality: right Qualified Code(s): L03.115 - Cellulitis of right lower limb - Discharge Information *PRESCRIPTION DRUG MONITORING PROGRAM REVIEWED*: No *COPY OF PRESCRIPTION DRUG MONITORING REPORT IN PATIENT ERICA: No Instructions: Cellulitis, Adult Forms: ED Department Discharge Additional Instructions: alternate tylenol and ibuprofen every 4 hours as needed for discomfort elevate clindamycin 300mg three times daily for one week recheck clinic this week monitor redness swelling, and fever urgent follow up if worsening Sepsis Event Note (ED) - Evaluation Sepsis Screening Result: No Definite Risk - Focused Exam Vital Signs: Vital Signs Temp Pulse Resp BP Pulse Ox 10/15/20 22:12 98 F 110 H 18 143/80 H 94 L - My Orders Last 24 Hours: My Active Orders 10/15/20 22:40 Blood Culture x2 Reflex Set [OM.PC] Stat 10/15/20 22:55 CULTURE BLOOD [BC] Stat 10/15/20 23:00 CULTURE BLOOD [BC] Stat - Assessment/Plan Last 24 Hours: My Active Orders 10/15/20 22:40 Blood Culture x2 Reflex Set [OM.PC] Stat 10/15/20 22:55 CULTURE BLOOD [BC] Stat 10/15/20 23:00 CULTURE BLOOD [BC] Stat
[2020-10-15] MEDS ORDERED: Piperacillin/Tazobactam 3.375 GM in Sodium Chloride 0.9% 100 ML IV ONE (22:46)
[2020-10-15] MEDS ORDERED: Ketorolac 30 MG/ML SDV IVPUSH ONE (22:46)
[2020-10-15 23:17] LABS: ANION GAP 15.5 mEq/L (7-13); CHLORIDE,CL 102 mmol/L (98-107); SODIUM,NA 140 mmol/L (136-145)
== END 2020-10-15 23:49 | disposition home or self-care (01) ==
LOC: DL.ED 22:06
DX: L03.115 Cellulitis of right lower limb (principal); E66.9 Obesity, unspecified; Z68.44 Body mass index [BMI] 60.0-69.9, adult
CPT/HCPCS: 36415; 80053; 83605; 85025; 87040; 96365; 96375; 99283; J1885; J2543

== ENCOUNTER 2022-01-26 02:35 | Emergency (ER) | payer BC ==
[2022-01-26 02:52] VITALS: BP 122/86; PULSE 96
[2022-01-26] MEDS ORDERED: Fluconazole 100 MG Tab PO ONE (03:37)
[2022-01-26] MEDS ORDERED: Doxycycline Monohydrate 100 MG Cap PO ONE (03:39)
[2022-01-26] MEDS ORDERED: 50% Dextrose in Water 50 ML Syringe IVPUSH PRN (03:47)
[2022-01-26] MEDS ORDERED: Glucagon,Human Recombinant 1 MG Vial IM PRN (03:47)
[2022-01-26] MEDS ORDERED: Insulin Regular, Human 100 Units/ML 3 ML Vial SUBCUT ONE (03:47)
[2022-01-26 04:45] LABS: ANION GAP 14.9 mEq/L (7-13)
== END 2022-01-26 05:23 | disposition home or self-care (01) ==
LOC: DL.ED 02:35
DX: E11.65 Type 2 diabetes mellitus with hyperglycemia (principal); B37.42 Candidal balanitis; E11.9 Type 2 diabetes mellitus without complications; E66.9 Obesity, unspecified; Z68.43 Body mass index [BMI] 50.0-59.9, adult; Z86.16 Personal history of COVID-19
CPT/HCPCS: 36415; 80053; 83605; 85025; 87040; 99283; 99284; A9270-GY; J1815-GY

== ENCOUNTER 2022-04-13 01:02 | Emergency (ER) | payer BC ==
[2022-04-13 01:35] VITALS: BP 129/95; PULSE 88
[2022-04-13] MEDS ORDERED: Lidocaine 2% with EPINEPHrine 1:200,000 20 ML SDV INJECT ONE (01:41)
[2022-04-13] MEDS ORDERED: Doxycycline Monohydrate 100 MG Cap PO ONE (01:42)
== END 2022-04-13 02:30 | disposition home or self-care (01) ==
LOC: DL.ED 01:02
DX: L02.811 Cutaneous abscess of head [any part, except face] (principal); E11.9 Type 2 diabetes mellitus without complications; E66.9 Obesity, unspecified; Z68.43 Body mass index [BMI] 50.0-59.9, adult; Z79.84 Long term (current) use of oral hypoglycemic drugs
CPT/HCPCS: 10060; 87070; 87077; 87186; 99283; A9270

== ENCOUNTER 2022-09-01 02:09 | Emergency (ER) | payer OTHER, BC ==
[2022-09-01] MEDS: Ketorolac 30 MG/ML SDV IM ONE (03:54)
[2022-09-01] MEDS: Acetaminophen/oxyCODONE 325-5 MG Tab PO ONE (03:56)
[2022-09-01 04:01] VITALS: BP 116/66; PULSE 101
[2022-09-01] MEDS ORDERED: Take Home: Acetaminophen/oxyCODONE 325-5 MG, 5 Tab Pack PO ONE (05:17)
== END 2022-09-01 05:39 | disposition home or self-care (01) ==
LOC: DL.ED 02:09
DX: S93.401A Sprain of unspecified ligament of right ankle, initial encounter (principal); E11.9 Type 2 diabetes mellitus without complications; Z79.84 Long term (current) use of oral hypoglycemic drugs; X50.1XXA Overexertion from prolonged static or awkward postures, initial encounter; Y92.89 Other specified places as the place of occurrence of the external cause; Y99.0 Civilian activity done for income or pay
CPT/HCPCS: 73610; 96372; 99283; A9270; J1885; 29515; 99282

== ENCOUNTER 2022-10-28 12:35 | Emergency (ER) | payer BC ==
[2022-10-28] MEDS ORDERED: Sodium Chloride 0.9% 10 ML Syringe FLUSH PRN (12:40)
[2022-10-28] MEDS ORDERED: Sodium Chloride 0.9% 1,000 ML IV ONE ×2 (12:49→13:25)
[2022-10-28 12:51] LABS: MEAN CORPUSCULAR HEMOGLOBIN 29.5 pg (27.0-34.0); MEAN CORPUSCULAR HGB CONC 31.6 g/dL (33.0-35.0); MEAN CORPUSCULAR VOLUME 93.5 fL (80-100); PLATELET COUNT,PLT 325 10^3/uL (150-450); WHITE BLOOD CELL COUNT,WBC 22.6 10^3/uL (5.0-10.0)
[2022-10-28 12:56] LABS: HEMATOCRIT 18.7 % (40.0-54.0); HEMOGLOBIN 5.9 g/dL (14.0-18.0)
[2022-10-28 12:57] LABS: BASOPHILS PERCENT AUTO 0.4 % (0.0-1.0); EOSINOPHILS PERCENT AUTO 0.4 % (1.0-3.0); LYMPHOCYTES PERCENT AUTO 18.7 % (20.5-50.1); MONOCYTES PERCENT AUTO 7.7 % (2-8); NEUTROPHILS PERCENT AUTO 72.8 % (42.2-75.2)
[2022-10-28 13:21] LABS: ALBUMIN 2.2 g/dL (3.4-5.0); ANION GAP 14.7 mEq/L (7-13); BILIRUBIN TOTAL 0.2 mg/dL (0.2-1.0); BUN/CREATININE RATIO 34.6 (No establ ref range); CALCIUM 7.6 mg/dL (8.5-10.1); CREATININE 0.81 mg/dL (0.70-1.30); EST CRCL DRUG DOSING (CG) 140.95 mL/min; MAGNESIUM 1.5 mg/dL (1.8-2.4); POTASSIUM,K 3.7 mmol/L (3.5-5.1); PROTEIN TOTAL,TP 5.2 g/dL (6.4-8.2); PROTHROMBIN TIME 10.2 SEC (9.0-12.0); PTT,PARTIAL THROMBOPLSTIN TIME 19.6 SEC (22.0-34.0); TSH ULTRASENSITIVE 2.4 uIU/mL (0.36-3.74)
[2022-10-28 13:23] LABS: A/G RATIO 0.73
[2022-10-28 13:25] LABS: LACTIC ACID 5.2 mmol/L (0.4-2.0)
[2022-10-28 13:33] LABS: BAND PERCENT MAN 4 %; LYMPHOCYTES PERCENT MAN 12 % (20-50); METAMYELOCYTE PERCENT MAN 2; MONOCYTES PERCENT MAN 4 % (2-8); NRBC MANUAL 3 /100WBC; SEG NEUTROPHILS PERCENT MAN 78 % (42-75)
[2022-10-28] MEDS ORDERED: Pantoprazole 40 MG Vial IVPUSH ONE (13:35)
[2022-10-28] MEDS ORDERED: Iopamidol 612 MG/ML 100 ML Bottle IVPUSH ONE (13:36)
[2022-10-28 13:44] LABS: AMYLASE 23 U/L (25-115); LIPASE 97 U/L (73-393)
[2022-10-28 13:46] LABS: C-REACTIVE PROTEIN < 0.2 mg/dL (0.0-0.9)
[2022-10-28] MEDS ORDERED: Norepinephrine Bit/D5W Premix 250 ML ONE (13:46)
[2022-10-28] MEDS ORDERED: Piperacillin/Tazobactam 4.5 GM in Sodium Chloride 0.9% 100 ML IV ONE (13:54)
[2022-10-28] MEDS ORDERED: Norepinephrine Bit/D5W Premix 250 ML IV SCH (14:00)
[2022-10-28 15:21] LABS: APPEARANCE,URINE CLEAR (CLEAR); BILIRUBIN,URINE NEGATIVE (NEGATIVE); COLOR,URINE YELLOW (YELLOW); GLUCOSE,URINE 500 (NEGATIVE); KETONES,URINE 15 (NEGATIVE); LEUKOCYTE ESTERASE,URINE NEGATIVE (NEGATIVE); NITRITE,URINE NEGATIVE (NEGATIVE); OCCULT BLOOD,URINE MODERATE (NEGATIVE); PH,URINE 5.5 (5.0-9.0); PROTEIN,URINE TRACE (NEGATIVE); UROBILINOGEN,URINE 0.2 mg/dL (0.2-1.0)
[2022-10-28 15:39] VITALS: PULSE 114
[2022-10-28 15:39] LABS: BACTERIA,URINE FEW /HPF (0-FEW/HPF); EPITHELIAL CELLS,URINE FEW /HPF (NOT SEEN); WBC,URINE 0-5 /HPF (0-5/HPF)
[2022-10-28 16:30] VITALS: BP 106/56
== END 2022-10-28 16:57 ==
LOC: DL.ED 12:35
DX: R74.02 Elevation of levels of lactic acid dehydrogenase [LDH] (principal); R57.8 Other shock; K92.1 Melena; D64.9 Anemia, unspecified; D72.828 Other elevated white blood cell count; E11.9 Type 2 diabetes mellitus without complications; Z79.82 Long term (current) use of aspirin; Z86.16 Personal history of COVID-19
CPT/HCPCS: 36415; 36430; 71045; 74177; 80053; 81001; 82150; 82272; 83605; 83690; 83735; 83880; 84145; 84443; 84484; 85025; 85610; 85730; 86140; 86850; 86900; 86901; 86920; 86922; 87040; 93005; 93010; 96361; 96365; 96366; 96368; 96375; 99285; C9113; J2543; J3490; J7030; P9016; Q9967

== ENCOUNTER 2022-11-04 12:35 | Emergency (ER) | payer BC ==
[2022-11-04] MEDS ORDERED: Pantoprazole 40 MG Vial IVPUSH ONE (12:43)
[2022-11-04] MEDS ORDERED: Sodium Chloride 0.9% 1,000 ML IV ONE (12:43)
[2022-11-04] MEDS ORDERED: Sodium Chloride 0.9% 10 ML Syringe FLUSH PRN (12:44)
[2022-11-04] MEDS ORDERED: Octreotide 100 MCG in Sodium Chloride 0.9% 99 ML IV SCH (12:45)
[2022-11-04] MEDS ORDERED: Ondansetron 4 MG/2 ML SDV IVPUSH ONE (12:51)
[2022-11-04 13:02] LABS: BASOPHILS PERCENT AUTO 0.2 % (0.0-1.0); EOSINOPHILS PERCENT AUTO 1.4 % (1.0-3.0); HEMOGLOBIN 8.5 g/dL (14.0-18.0); LYMPHOCYTES PERCENT AUTO 16.2 % (20.5-50.1); MEAN CORPUSCULAR HGB CONC 31.5 g/dL (33.0-35.0); MEAN CORPUSCULAR VOLUME 95.4 fL (80-100); MONOCYTES PERCENT AUTO 7.5 % (2-8); NEUTROPHILS PERCENT AUTO 74.7 % (42.2-75.2); PLATELET COUNT,PLT 435 10^3/uL (150-450); RED BLOOD CELL COUNT 2.83 10^6/uL (4.6-6.2); WHITE BLOOD CELL COUNT,WBC 8.5 10^3/uL (5.0-10.0)
[2022-11-04 13:23] LABS: ALANINE AMINOTRANSFERASE,ALT 34 U/L (16-63); ALBUMIN 2.7 g/dL (3.4-5.0); ALKALINE PHOSPHATASE 88 U/L (46-116); ANION GAP 12.9 mEq/L (7-13); ASPARTATE AMNIOTRANSFERASE,AST 24 U/L (15-37); BILIRUBIN TOTAL 0.3 mg/dL (0.2-1.0); BLOOD UREA NITROGEN,BUN 8 mg/dL (7-18); BUN/CREATININE RATIO 9.8 (No establ ref range); CARBON DIOXIDE,CO2 27 mmol/L (21-32); CHLORIDE,CL 107 mmol/L (98-107); CREATININE 0.82 mg/dL (0.70-1.30); EST CRCL DRUG DOSING (CG) 139.23 mL/min; GLUCOSE RANDOM 127 mg/dL (70-99); LIPASE 129 U/L (73-393); MAGNESIUM 1.8 mg/dL (1.8-2.4); POTASSIUM,K 3.9 mmol/L (3.5-5.1); PROTEIN TOTAL,TP 6.2 g/dL (6.4-8.2); SODIUM,NA 143 mmol/L (136-145)
[2022-11-04 13:24] LABS: A/G RATIO 0.77; C-REACTIVE PROTEIN < 0.2 mg/dL (0.0-0.9); ESTIMATED GFR 114 mL/min (>=60); ETHANOL BLOOD MEDICAL < 3 mg/dL (0)
[2022-11-04 13:29] LABS: PROTHROMBIN TIME 9.8 SEC (9.0-12.0); PTT,PARTIAL THROMBOPLSTIN TIME 22.6 SEC (22.0-34.0)
[2022-11-04 13:32] LABS: LACTIC ACID 2.4 mmol/L (0.4-2.0)
[2022-11-04 15:50] VITALS: BP 100/64; PULSE 91
== END 2022-11-04 15:45 ==
LOC: DL.ED 12:35
DX: K92.2 Gastrointestinal hemorrhage, unspecified (principal); D62 Acute posthemorrhagic anemia; K92.0 Hematemesis; I95.89 Other hypotension; E11.9 Type 2 diabetes mellitus without complications; E66.9 Obesity, unspecified; Z79.84 Long term (current) use of oral hypoglycemic drugs; Z86.16 Personal history of COVID-19; Z68.43 Body mass index [BMI] 50.0-59.9, adult
CPT/HCPCS: 36415; 36430; 80053; 80307; 82140; 83605; 83690; 83735; 85025; 85610; 85730; 86140; 86850; 86900; 86901; 86920; 86922; 87040; 96365; 96375; 99285; C9113; J2354; J2405; J3490; J7030; P9016

== ENCOUNTER 2022-11-18 04:08 | Emergency (ER) | payer BC ==
[2022-11-18] MEDS: Ketorolac 30 MG/ML SDV IM ONE (04:26)
[2022-11-18 04:28] VITALS: BP 135/98; PULSE 89
== END 2022-11-18 04:33 | disposition home or self-care (01) ==
LOC: DL.ED 04:08
DX: S46.202A Unspecified injury of muscle, fascia and tendon of other parts of biceps, left arm, initial encounter (principal); E11.9 Type 2 diabetes mellitus without complications; E66.9 Obesity, unspecified; Z86.16 Personal history of COVID-19; Z79.84 Long term (current) use of oral hypoglycemic drugs; Z79.899 Other long term (current) drug therapy; Y04.0XXA Assault by unarmed brawl or fight, initial encounter; Y92.59 Other trade areas as the place of occurrence of the external cause
CPT/HCPCS: 96372; 99283; J1885

== ENCOUNTER 2023-03-03 04:01 | Emergency (ER) | payer OTHER, BC ==
[2023-03-03] MEDS ORDERED: Lidocaine 1% 5 ML VIAL INJECT ONE (04:26)
[2023-03-03 05:35] VITALS: BP 124/85; PULSE 88
== END 2023-03-03 05:31 | disposition home or self-care (01) ==
LOC: DL.ED 04:01
DX: S61.411A Laceration without foreign body of right hand, initial encounter (principal); E11.9 Type 2 diabetes mellitus without complications; E66.9 Obesity, unspecified; Z86.16 Personal history of COVID-19; Z79.84 Long term (current) use of oral hypoglycemic drugs; Z79.899 Other long term (current) drug therapy; Z68.54 Body mass index [BMI] pediatric, 95th percentile for age to less than 120% of the 95th percentile for age; W26.8XXA Contact with other sharp object(s), not elsewhere classified, initial encounter; Y99.0 Civilian activity done for income or pay
CPT/HCPCS: 12001; 99282; 99283; J3490

== ENCOUNTER 2023-04-11 05:54 | Day surgery (SDC) | payer BC, OTHER ==
[2023-04-11] MEDS ORDERED: fentaNYL 100 MCG/2 ML SDV IV ONE ×3 (05:55→06:56)
[2023-04-11] MEDS ORDERED: Midazolam 1 MG/ML 2 ML SDV IV ONE ×3 (05:55→06:57)
[2023-04-11] MEDS ORDERED: Dextrose 5%-0.45% NaCl 1,000 ML IV SCH (06:00)
[2023-04-11] MEDS ORDERED: fentaNYL 100 MCG/2 ML SDV ONE (06:08)
[2023-04-11] MEDS ORDERED: Midazolam 1 MG/ML 2 ML SDV ONE (06:08)
[2023-04-11 08:49] VITALS: PULSE 90
[2023-04-11 08:50] VITALS: BP 110/65
== END 2023-04-11 08:40 | disposition home or self-care (01) ==
LOC: DL.ENDO 05:54
PROVIDERS: ATTEND Internal Medicine Gastroenterology
DX: K29.50 Unspecified chronic gastritis without bleeding (principal); E11.9 Type 2 diabetes mellitus without complications; F32.9 Major depressive disorder, single episode, unspecified; D64.9 Anemia, unspecified; E78.5 Hyperlipidemia, unspecified; E66.01 Morbid (severe) obesity due to excess calories; Z68.43 Body mass index [BMI] 50.0-59.9, adult; Z79.84 Long term (current) use of oral hypoglycemic drugs; Z79.899 Other long term (current) drug therapy
CPT/HCPCS: 87077; J2250; J3010; J7042

== ENCOUNTER 2023-11-26 20:02 | Emergency (ER) | payer BC ==
[2023-11-26 20:19] VITALS: BP 128/110; PULSE 118
== END 2023-11-26 21:44 | disposition home or self-care (01) ==
LOC: DL.ED 20:02
DX: S20.212A Contusion of left front wall of thorax, initial encounter (principal); R07.89 Other chest pain; E66.9 Obesity, unspecified; E11.9 Type 2 diabetes mellitus without complications; Z79.899 Other long term (current) drug therapy; Z86.16 Personal history of COVID-19; W19.XXXA Unspecified fall, initial encounter
CPT/HCPCS: 71101-LT; 99283

== ENCOUNTER 2023-12-22 02:28 | Emergency (ER) | payer BC ==
[2023-12-22] MEDS ORDERED: Sodium Chloride 0.9% 10 ML Syringe FLUSH PRN (02:40)
[2023-12-22 03:02] VITALS: BP 145/93; PULSE 91
[2023-12-22 03:03] LABS: BASOPHILS PERCENT AUTO 0.4 % (0.0-1.0); EOSINOPHILS PERCENT AUTO 1.5 % (1.0-3.0); HEMATOCRIT 44.3 % (40.0-54.0); HEMOGLOBIN 14.6 g/dL (14.0-18.0); LYMPHOCYTES PERCENT AUTO 23.6 % (20.5-50.1); MEAN CORPUSCULAR HEMOGLOBIN 29.5 pg (27.0-34.0); MEAN CORPUSCULAR VOLUME 89.5 fL (80-100); MONOCYTES PERCENT AUTO 8.3 % (2-8); NEUTROPHILS PERCENT AUTO 66.2 % (42.2-75.2); PLATELET COUNT,PLT 302 10^3/uL (150-450); RED BLOOD CELL COUNT 4.95 10^6/uL (4.6-6.2); WHITE BLOOD CELL COUNT,WBC 8.2 10^3/uL (5.0-10.0)
[2023-12-22 03:13] LABS: ALBUMIN 3.2 g/dL (3.4-5.0); ANION GAP 12.2 mEq/L (7-13); BILIRUBIN TOTAL 0.5 mg/dL (0.2-1.0); BUN/CREATININE RATIO 12.4 (No establ ref range); CALCIUM 8.8 mg/dL (8.5-10.1); CREATININE 0.89 mg/dL (0.70-1.30); EST CRCL DRUG DOSING (CG) 126.99 mL/min; POTASSIUM,K 4.2 mmol/L (3.5-5.1); PROTEIN TOTAL,TP 7.9 g/dL (6.4-8.2)
[2023-12-22 03:19] LABS: A/G RATIO 0.68
[2023-12-22 03:38] LABS: APPEARANCE,URINE CLEAR (CLEAR); BILIRUBIN,URINE NEGATIVE (NEGATIVE); COLOR,URINE YELLOW (YELLOW); GLUCOSE,URINE >=1000 (NEGATIVE); KETONES,URINE NEGATIVE (NEGATIVE); LEUKOCYTE ESTERASE,URINE NEGATIVE (NEGATIVE); NITRITE,URINE NEGATIVE (NEGATIVE); OCCULT BLOOD,URINE NEGATIVE (NEGATIVE); PH,URINE 5.5 (5.0-9.0); PROTEIN,URINE NEGATIVE (NEGATIVE); UROBILINOGEN,URINE 0.2 mg/dL (0.2-1.0)
== END 2023-12-22 04:17 | disposition home or self-care (01) ==
LOC: DL.ED 02:28
DX: J06.9 Acute upper respiratory infection, unspecified (principal); H65.93 Unspecified nonsuppurative otitis media, bilateral; E11.9 Type 2 diabetes mellitus without complications; E66.9 Obesity, unspecified; Z86.16 Personal history of COVID-19; Z68.43 Body mass index [BMI] 50.0-59.9, adult; Z79.84 Long term (current) use of oral hypoglycemic drugs; Z79.899 Other long term (current) drug therapy
CPT/HCPCS: 36415; 80053; 81003; 83690; 85025; 87804; 99283; 99284; U0002

== ENCOUNTER 2024-02-16 04:28 | Emergency (ER) | payer BC ==
[2024-02-16] MEDS: Ondansetron 4 MG Tab.DIS PO ONE (05:17)
[2024-02-16] MEDS: Loperamide 2 MG Cap PO ONE (05:17)
[2024-02-16 05:30] LABS: BASOPHILS PERCENT AUTO 0.3 % (0.0-1.0); EOSINOPHILS PERCENT AUTO 0.7 % (1.0-3.0); HEMATOCRIT 44.8 % (40.0-54.0); HEMOGLOBIN 14.4 g/dL (14.0-18.0); LYMPHOCYTES PERCENT AUTO 16.3 % (20.5-50.1); MEAN CORPUSCULAR HEMOGLOBIN 29.4 pg (27.0-34.0); MEAN CORPUSCULAR HGB CONC 32.1 g/dL (33.0-35.0); MEAN CORPUSCULAR VOLUME 91.4 fL (80-100); MONOCYTES PERCENT AUTO 6.9 % (2-8); NEUTROPHILS PERCENT AUTO 75.8 % (42.2-75.2); PLATELET COUNT,PLT 303 10^3/uL (150-450); WHITE BLOOD CELL COUNT,WBC 10.1 10^3/uL (5.0-10.0)
[2024-02-16 05:52] LABS: A/G RATIO 0.7; ALBUMIN 3.4 g/dL (3.4-5.0); ANION GAP 10.6 mEq/L (7-13); BILIRUBIN TOTAL 0.6 mg/dL (0.2-1.0); BUN/CREATININE RATIO 14.1 (No establ ref range); CALCIUM 9.3 mg/dL (8.5-10.1); CREATININE 0.85 mg/dL (0.70-1.30); EST CRCL DRUG DOSING (CG) 132.97 mL/min; MAGNESIUM 1.6 mg/dL (1.8-2.4); POTASSIUM,K 4.6 mmol/L (3.5-5.1)
[2024-02-16 06:27] VITALS: BP 107/64; PULSE 100
== END 2024-02-16 06:19 | disposition home or self-care (01) ==
LOC: DL.ED 04:28
DX: R19.5 Other fecal abnormalities (principal); T38.3X5A Adverse effect of insulin and oral hypoglycemic [antidiabetic] drugs, initial encounter; E11.9 Type 2 diabetes mellitus without complications; E66.9 Obesity, unspecified; Z86.16 Personal history of COVID-19; Z79.84 Long term (current) use of oral hypoglycemic drugs; Z79.899 Other long term (current) drug therapy; Z68.43 Body mass index [BMI] 50.0-59.9, adult
CPT/HCPCS: 36415; 80053; 83735; 85025; 99283; 99284; A9270

== ENCOUNTER 2024-08-19 04:18 | Emergency (ER) | payer BC ==
[2024-08-19 04:52] LABS: BASOPHILS PERCENT AUTO 0.6 % (0.0-1.0); EOSINOPHILS PERCENT AUTO 1.3 % (1.0-3.0); HEMATOCRIT 43.7 % (40.0-54.0); HEMOGLOBIN 14.4 g/dL (14.0-18.0); LYMPHOCYTES PERCENT AUTO 23.5 % (20.5-50.1); MEAN CORPUSCULAR HEMOGLOBIN 29.9 pg (27.0-34.0); MEAN CORPUSCULAR VOLUME 90.9 fL (80-100); MONOCYTES PERCENT AUTO 8.2 % (2-8); NEUTROPHILS PERCENT AUTO 66.4 % (42.2-75.2); PLATELET COUNT,PLT 290 10^3/uL (150-450); RED BLOOD CELL COUNT 4.81 10^6/uL (4.6-6.2); WHITE BLOOD CELL COUNT,WBC 8.9 10^3/uL (5.0-10.0)
[2024-08-19 05:10] LABS: ALANINE AMINOTRANSFERASE,ALT 46 U/L (16-63); ALBUMIN 3.1 g/dL (3.4-5.0); ALKALINE PHOSPHATASE 159 U/L (46-116); ASPARTATE AMNIOTRANSFERASE,AST 23 U/L (15-37); B-TYPE NATRIURETIC PEPTIDE,BNP < 5 pg/ml (0-100); BILIRUBIN TOTAL 0.4 mg/dL (0.2-1.0); BLOOD UREA NITROGEN,BUN 13 mg/dL (7-18); CALCIUM 8.9 mg/dL (8.5-10.1); CARBON DIOXIDE,CO2 29 mmol/L (21-32); CHLORIDE,CL 101 mmol/L (98-107); CREATININE 0.93 mg/dL (0.70-1.30); GLUCOSE RANDOM 287 mg/dL (70-99); MAGNESIUM 1.5 mg/dL (1.8-2.4); SODIUM,NA 137 mmol/L (136-145)
[2024-08-19 05:11] LABS: A/G RATIO 0.63; ESTIMATED GFR 105 mL/min (>=60)
[2024-08-19 05:14] LABS: LACTIC ACID 1.4 mmol/L (0.4-2.0)
[2024-08-19 05:54] VITALS: BP 156/88; PULSE 94
== END 2024-08-19 05:51 | disposition home or self-care (01) ==
LOC: DL.ED 04:18
DX: R10.9 Unspecified abdominal pain (principal); R42 Dizziness and giddiness; E11.9 Type 2 diabetes mellitus without complications; E66.9 Obesity, unspecified; Z68.43 Body mass index [BMI] 50.0-59.9, adult; Z86.16 Personal history of COVID-19; Z79.84 Long term (current) use of oral hypoglycemic drugs; Z79.899 Other long term (current) drug therapy
CPT/HCPCS: 36415; 80053; 83605; 83735; 83880; 84484; 85025; 85379; 86850; 86900; 86901; 93005; 93010; 99283; 99285

== ENCOUNTER 2024-08-22 02:18 | Emergency (ER) | payer BC ==
[2024-08-22 02:23] VITALS: BP 122/77
[2024-08-22] MEDS: Ondansetron 4 MG/2 ML SDV IVPUSH ONE (02:34)
[2024-08-22] MEDS: Sodium Chloride 0.9% 1,000 ML IV ONE ×2 (02:34→03:20)
[2024-08-22] MEDS: Magnesium Sulfate 2 GM/50 mL 2 GM in Premix Bag 1 BAG IV ONE (03:07)
[2024-08-22 03:08] LABS: ALANINE AMINOTRANSFERASE,ALT 50 U/L (16-63); ALBUMIN 3.3 g/dL (3.4-5.0); ALKALINE PHOSPHATASE 125 U/L (46-116); ANION GAP 11.8 mEq/L (7-13); ASPARTATE AMNIOTRANSFERASE,AST 28 U/L (15-37); BILIRUBIN TOTAL 0.7 mg/dL (0.2-1.0); BLOOD UREA NITROGEN,BUN 12 mg/dL (7-18); BUN/CREATININE RATIO 13.6 (No establ ref range); CARBON DIOXIDE,CO2 26 mmol/L (21-32); CHLORIDE,CL 101 mmol/L (98-107); CREATININE 0.88 mg/dL (0.70-1.30); EST CRCL DRUG DOSING (CG) 127.14 mL/min; GLUCOSE RANDOM 240 mg/dL (70-99); LIPASE 43 U/L (16-77); MAGNESIUM 1.5 mg/dL (1.8-2.4); POTASSIUM,K 3.8 mmol/L (3.5-5.1); PROTEIN TOTAL,TP 8.3 g/dL (6.4-8.2); SODIUM,NA 135 mmol/L (136-145)
[2024-08-22 03:08] LABS: BASOPHILS PERCENT AUTO 0.2 % (0.0-1.0); EOSINOPHILS PERCENT AUTO 0.3 % (1.0-3.0); HEMATOCRIT 44.8 % (40.0-54.0); HEMOGLOBIN 15.4 g/dL (14.0-18.0); LACTIC ACID 1.6 mmol/L (0.4-2.0); LYMPHOCYTES PERCENT AUTO 12.9 % (20.5-50.1); MEAN CORPUSCULAR HGB CONC 34.4 g/dL (33.0-35.0); MEAN CORPUSCULAR VOLUME 90.1 fL (80-100); MONOCYTES PERCENT AUTO 6.6 % (2-8); PLATELET COUNT,PLT 313 10^3/uL (150-450); RED BLOOD CELL COUNT 4.97 10^6/uL (4.6-6.2); WHITE BLOOD CELL COUNT,WBC 12.8 10^3/uL (5.0-10.0)
[2024-08-22 03:09] LABS: A/G RATIO 0.66; ESTIMATED GFR 110 mL/min (>=60); ETHANOL BLOOD MEDICAL < 3 mg/dL (0)
[2024-08-22 03:21] VITALS: PULSE 103
[2024-08-22] MEDS: Take Home: Ondansetron 4 MG Tab.DIS, 5 Tab Pack PO ONE (04:14)
== END 2024-08-22 04:20 | disposition home or self-care (01) ==
LOC: DL.ED 02:18
DX: R11.2 Nausea with vomiting, unspecified (principal); E66.9 Obesity, unspecified; E11.9 Type 2 diabetes mellitus without complications; Z79.899 Other long term (current) drug therapy; Z79.84 Long term (current) use of oral hypoglycemic drugs; Z86.16 Personal history of COVID-19; Z68.43 Body mass index [BMI] 50.0-59.9, adult
CPT/HCPCS: 80053; 80307; 83605; 83690; 83735; 84484; 85025; 96365; 96375; 99283; 99284; J2405; J3475; J7030; Q0162

== ENCOUNTER 2024-09-10 18:11 | Emergency (ER) | payer BC ==
[2024-09-10] MEDS: Lidocaine 5% 700 MG Patch TOP ONE (18:33)
[2024-09-10] MEDS: Ketorolac 30 MG/ML SDV IM ONE (18:33)
[2024-09-10 18:45] VITALS: BP 139/94; PULSE 136
== END 2024-09-10 18:38 | disposition home or self-care (01) ==
LOC: DL.ED 18:11
DX: R07.81 Pleurodynia (principal); E11.9 Type 2 diabetes mellitus without complications; Z86.16 Personal history of COVID-19; Z79.84 Long term (current) use of oral hypoglycemic drugs; Z79.899 Other long term (current) drug therapy
CPT/HCPCS: 96372; 99283; A9270; J1885

== ENCOUNTER 2024-09-12 02:59 | Emergency (ER) | payer BC ==
[2024-09-12] MEDS ORDERED: Sodium Chloride 0.9% 10 ML Syringe FLUSH PRN (03:29)
[2024-09-12 03:31] VITALS: BP 145/86; PULSE 132
[2024-09-12 03:48] LABS: HEMATOCRIT 42.6 % (40.0-54.0); HEMOGLOBIN 14.1 g/dL (14.0-18.0); MEAN CORPUSCULAR HEMOGLOBIN 29.7 pg (27.0-34.0); MEAN CORPUSCULAR HGB CONC 33.1 g/dL (33.0-35.0); MEAN CORPUSCULAR VOLUME 89.7 fL (80-100); PLATELET COUNT,PLT 323 10^3/uL (150-450); RED BLOOD CELL COUNT 4.75 10^6/uL (4.6-6.2); WHITE BLOOD CELL COUNT,WBC 17.2 10^3/uL (5.0-10.0)
[2024-09-12 03:52] LABS: BASOPHILS PERCENT AUTO 0.3 % (0.0-1.0); EOSINOPHILS PERCENT AUTO 2.7 % (1.0-3.0); MONOCYTES PERCENT AUTO 8.6 % (2-8); NEUTROPHILS PERCENT AUTO 76.4 % (42.2-75.2)
[2024-09-12] MEDS: Iopamidol 612 MG/ML 100 ML Bottle IVPUSH ONE ×2 (03:58→04:04)
[2024-09-12 04:14] LABS: ALBUMIN 2.8 g/dL (3.4-5.0); BUN/CREATININE RATIO 14.6 (No establ ref range); CALCIUM 9.1 mg/dL (8.5-10.1); CREATININE 0.89 mg/dL (0.70-1.30); EST CRCL DRUG DOSING (CG) 125.71 mL/min; PROTEIN TOTAL,TP 7.9 g/dL (6.4-8.2)
[2024-09-12 04:15] LABS: A/G RATIO 0.55
[2024-09-12 04:25] LABS: BAND PERCENT MAN 2 %; EOSINOPHILS PERCENT MAN 3 % (1-3); LYMPHOCYTES % ATYPICAL MANUAL 3 %; LYMPHOCYTES PERCENT MAN 12 % (20-50); MONOCYTES PERCENT MAN 8 % (2-8); SEG NEUTROPHILS PERCENT MAN 72 % (42-75)
[2024-09-12 04:27] LABS: INR 0.9 (0.9-1.2); PROTHROMBIN TIME 9.8 SEC (9.0-12.0); PTT,PARTIAL THROMBOPLSTIN TIME 22.5 SEC (22.0-34.0)
[2024-09-12] MEDS: Ketorolac 30 MG/ML SDV IVPUSH ONE (05:46)
[2024-09-12] MEDS: Take Home: Cyclobenzaprine 10 MG Tab, 4 Tab Pack PO ONE (05:51)
== END 2024-09-12 06:07 | disposition home or self-care (01) ==
LOC: DL.ED 02:59
DX: S22.42XA Multiple fractures of ribs, left side, initial encounter for closed fracture (principal); D72.829 Elevated white blood cell count, unspecified; E11.9 Type 2 diabetes mellitus without complications; E66.9 Obesity, unspecified; Z68.43 Body mass index [BMI] 50.0-59.9, adult; Z86.16 Personal history of COVID-19; Z79.899 Other long term (current) drug therapy; Z79.84 Long term (current) use of oral hypoglycemic drugs
CPT/HCPCS: 36415; 74177; 80053; 85025; 85610; 85730; 96374; 99284; A9270; J1885; Q9967

== ENCOUNTER 2024-10-15 20:32 | Emergency (ER) | payer BC ==
[2024-10-15 20:45] LABS: O2 DELIVERY DEVICE AEROSOL MASK
[2024-10-15 20:51] LABS: O2 SATURATION VENOUS 46.2 % (60-80); PCO2 VENOUS 54 mmHg (41-51); PH,VENOUS 7.35 (7.31-7.41); PO2 VENOUS 36 mmHg (35-42)
[2024-10-15 20:52] LABS: BASE EXCESS VENOUS 3.0 mmol/l ((-2)-(+3)); BICARBONATE,VENOUS 29 mmol/l (19-25); PLATELET COUNT,PLT 357 10^3/uL (150-450); RED BLOOD CELL COUNT 4.53 10^6/uL (4.6-6.2); WHITE BLOOD CELL COUNT,WBC 6.9 10^3/uL (5.0-10.0)
[2024-10-15 20:56] LABS: BASOPHILS PERCENT AUTO 0.6 % (0.0-1.0); EOSINOPHILS PERCENT AUTO 2.8 % (1.0-3.0); LYMPHOCYTES PERCENT AUTO 19.3 % (20.5-50.1); MONOCYTES PERCENT AUTO 10.9 % (2-8); NEUTROPHILS PERCENT AUTO 66.4 % (42.2-75.2)
[2024-10-15 21:09] LABS: LACTIC ACID 1.2 mmol/L (0.4-2.0)
[2024-10-15 21:16] LABS: ALANINE AMINOTRANSFERASE,ALT 30 U/L (16-63); ASPARTATE AMNIOTRANSFERASE,AST 21 U/L (15-37); BILIRUBIN TOTAL 0.6 mg/dL (0.2-1.0); BLOOD UREA NITROGEN,BUN 6 mg/dL (7-18); CARBON DIOXIDE,CO2 31 mmol/L (21-32); CHLORIDE,CL 101 mmol/L (98-107); CREATININE 0.72 mg/dL (0.70-1.30); GLUCOSE RANDOM 257 mg/dL (70-99); POTASSIUM,K 4.1 mmol/L (3.5-5.1); PROTEIN TOTAL,TP 8.0 g/dL (6.4-8.2); SODIUM,NA 138 mmol/L (136-145)
[2024-10-15 21:18] LABS: A/G RATIO 0.63; ESTIMATED GFR 117 mL/min (>=60)
[2024-10-15 21:19] LABS: EOSINOPHILS PERCENT MAN 1 % (1-3); LYMPHOCYTES PERCENT MAN 17 % (20-50); MONOCYTES PERCENT MAN 9 % (2-8); SEG NEUTROPHILS PERCENT MAN 73 % (42-75)
[2024-10-15] MEDS: Iopamidol 612 MG/ML 100 ML Bottle IVPUSH ONE (21:28)
[2024-10-15] MEDS: Ketamine 500 mg/10 ML MDV IV ONE (22:42)
[2024-10-16 05:09] VITALS: BP 135/71; PULSE 95
== END 2024-10-16 00:19 ==
LOC: DL.ED 20:32
DX: J90 Pleural effusion, not elsewhere classified (principal); S22.5XXK Flail chest, subsequent encounter for fracture with nonunion; E11.9 Type 2 diabetes mellitus without complications; Z86.16 Personal history of COVID-19; Z79.84 Long term (current) use of oral hypoglycemic drugs; Z79.899 Other long term (current) drug therapy
CPT/HCPCS: 32551; 36415; 36430; 71046; 71260; 80053; 82803; 83605; 85025; 86850; 86900; 86901; 86920; 86922; 93005; 94762; 96374; 96375; 99285; J2003; J2270; J3490; J7030; P9016; Q9967

== ENCOUNTER 2024-11-06 03:28 | Emergency (ER) | payer BC ==
[2024-11-06 03:47] VITALS: BP 127/85; PULSE 102
== END 2024-11-06 04:19 | disposition home or self-care (01) ==
LOC: DL.ED 03:28
DX: G89.18 Other acute postprocedural pain (principal); R07.89 Other chest pain; E11.9 Type 2 diabetes mellitus without complications; Z79.84 Long term (current) use of oral hypoglycemic drugs; Z79.899 Other long term (current) drug therapy; Z86.16 Personal history of COVID-19
CPT/HCPCS: 71046; 99284

== ENCOUNTER 2025-02-10 02:34 | Emergency (ER) | payer BC ==
[2025-02-10 05:06] VITALS: BP 125/86; PULSE 88
== END 2025-02-10 05:03 | disposition home or self-care (01) ==
LOC: DL.ED 02:34
DX: R07.89 Other chest pain (principal); E11.9 Type 2 diabetes mellitus without complications; Z79.899 Other long term (current) drug therapy; Z79.84 Long term (current) use of oral hypoglycemic drugs; Z86.16 Personal history of COVID-19
CPT/HCPCS: 71101-LT; 99283